=== PATIENT | male | born 1955 ===

== ENCOUNTER 2021-04-23 09:52 | Inpatient (IN) | payer OTHER, SELFPAY ==
[2021-04-23] MEDS ORDERED: Dexamethasone 10 MG/ML VIAL ONE (10:11)
[2021-04-23] MEDS ORDERED: Lorazepam 2 MG/ML VIAL ONE ×2 (10:25→15:19)
[2021-04-23 10:31] LABS: #Lymphocytes 0.8 thou/uL (1.20-3.40); #Monocytes 0.9 thou/uL (0.11-0.59); #Neutrophils 6.5 thou/uL (1.40-6.50); %Eosinophils 0.1 % (0.0-10.0); %Lymphocytes 9.4 % (21.0-51.0); %Monocytes 10.8 % (0.0-10.0); %Neutrophils 79.6 % (42.0-75.0); Hemoglobin 17.5 g/dL (14.0-18.0); Mean Corpuscular HGB CONC 33.6 g/dL (32.0-36.0); Mean Corpuscular Hemoglobin 31.1 pg (27.0-31.0); Mean Corpuscular Volume 92.6 fL (78.0-98.0); Platelet Count 187 thou/uL (130-400); RBC Distribution Width 12.7 % (11.5-14.5); Red Blood Cell (RBC) Count 5.62 mill/uL (4.70-6.10); White Blood Cell (WBC) Count 8.2 thou/uL (4.8-10.8)
[2021-04-23 10:50] LABS: ALT (SGPT) 18 U/L (8-55); AST (SGOT) 37 U/L (5-34); Albumin 3.8 g/dL (3.4-4.8); Alkaline Phosphatase 164 U/L (40-110); Anion Gap 24 mmol/L (10-20); BUN (Urea Nitrogen) 22 mg/dL (8.4-25.7); Bilirubin, Total 1.2 mg/dL (0.2-1.2); Calc. Creatinine Clearance 0 mL/min (70-130); Calcium 9.5 mg/dL (7.8-10.44); Carbon Dioxide 22 mmol/L (23-31); Chloride 102 mmol/L (98-107); Globulin 3.1 g/dL (2.4-3.5); Glucose 237 mg/dL (80-115); Lipase 63 U/L (8-78); Potassium 4.7 mmol/L (3.5-5.1); Protein, Total 6.9 g/dL (5.8-8.1); Sodium 143 mmol/L (136-145)
[2021-04-23 10:51] LABS: Bacteria/HPF None Seen HPF (None Seen); Bilirubin Negative (Negative); Blood, Urine 2+ (Negative); Clarity Clear (Clear); Glucose, Urine (Dipstick) Greater than 1000 mg/dL (Negative); Ketone, Urine 80 mg/dL (Negative); Leukocyte Negative Leu/uL (Negative); Nitrite Negative (Negative); Protein, Urine (Dipstick) 100 mg/dL (Neg-Trace); RBC/HPF 0-3 HPF (0-3); Specific Gravity, Urine 1.033 (1.002-1.036); Squamous Epithelial 0-3 HPF (0-3); Urobilinogen Normal mg/dL (Less than 2); WBC/HPF 0-3 HPF (0-3); pH, Urine 5.5 (5.0-9.0)
[2021-04-23] MEDS ORDERED: Ketorolac Tromethamine 30 MG/ML VIAL ONE (10:56)
[2021-04-23] MEDS ORDERED: Rocuronium Bromide 10 MG/ML (10ML VIAL) ONE ×2 (11:03→13:37)
[2021-04-23 11:12] LABS: CKMB 2.6 ng/mL (0-6.6)
[2021-04-23] MEDS ORDERED: Midazolam HCl 5 mg/ml Vial ONE ×2 (11:31→12:33)
[2021-04-23] MEDS ORDERED: Fentanyl 100 MCG/2 ML VIAL ONE (11:31)
[2021-04-23] MEDS ORDERED: Propofol 1,000 MG/100 ML VIAL IV ONE ×2 (11:33→13:37)
[2021-04-23] MEDS ORDERED: Iopamidol-370 76% 500 ML 1 ML ONE (11:46)
[2021-04-23 11:55] LABS: Prothrombin Time 13.3 sec (12.0-14.7)
[2021-04-23 11:56] LABS: PTT 32.9 sec (22.9-36.1)
[2021-04-23] MEDS ORDERED: fentaNYL Citrate/PF 2,000 MCG in Sodium Chloride 0.9% 60 ML IV SCH (12:00)
[2021-04-23 12:13] LABS: Actual Bicarbonate (HCO3a) 16.1 mEq/L (22-28); Analyzer IN Cardio ER; CO2 Tension 36.3 mmHg (35.0-45.0); Calcium, Ionized (arterial) 1.22 mmol/L (1.12-1.30); Carboxyhemoglobin (COHb) 0.5 gm% (0.0-3.0); Hemoglobin (Hb) 16.8 g/dL (14.0-18.0); O2 Tension (PaO2), arterial 82.8 mmHg (> 80.0); pH, Arterial 7.26 (7.35-7.45)
[2021-04-23] MEDS: Sodium Chloride 0.9% 1,000 ML IV SCH (13:30)
[2021-04-23] MEDS ORDERED: Rocuronium Bromide 10 MG/ML (10ML VIAL) IVP SCH (13:30)
[2021-04-23] MEDS: Lorazepam 2 MG/ML VIAL ONE ×2 (13:40→15:19)
[2021-04-23 13:55] LABS: Puncture Site LRA
[2021-04-23 13:56] LABS: ALV-art Gradient 584.825 mmHg (0-20)
[2021-04-23] MEDS ORDERED: Dextrose 5% in Water 1,000 ML IV PRN (14:38)
[2021-04-23] MEDS ORDERED: Dextrose 50% Abboject 50 ML SYRINGE SLOW IVP PRN (14:38)
[2021-04-23 14:42] LABS: Lactic Acid 2.6 mmol/L (0.5-2.2)
[2021-04-23] MEDS ORDERED: Pantoprazole 40 MG VIAL IVP SCH (14:45)
[2021-04-23 14:54] LABS: Troponin I 2.857 ng/mL (< 0.028)
[2021-04-23] MEDS: cefTRIAXone\\ROCEPHIN 1 GM in Sodium Chloride 0.9% 100 ML IVPB SCH (15:10)
[2021-04-23] MEDS: HumaLOG 300 UNITS/3 ML VIAL SC PRN (15:11)
[2021-04-23] MEDS ORDERED: Vecuronium 10 MG VIAL ONE (15:14)
[2021-04-23] MEDS: Azithromycin 500 MG in Sodium Chloride 0.9% 250 ML 250 ML IVPB SCH (15:16)
[2021-04-23] MEDS ORDERED: Propofol BOLUS 1,000 MG/100 ML VIAL IV PRN (15:30)
[2021-04-23] MEDS ORDERED: DISCONTINUE PREVIOUS NARCOTIC PAIN MEDICATIONS AND BENZODIAZEPINES FS SCH (15:30)
[2021-04-23] MEDS ORDERED: Fentanyl BOLUS 250 ML IVPB PRN (15:30)
[2021-04-23 17:39] LABS: Troponin I 4.276 ng/mL (< 0.028)
[2021-04-23] MEDS ORDERED: Aspirin 300 MG Suppository PR SCH (17:45)
[2021-04-23] MEDS: METHYLPREDNISOLONE SOD SUCC IVPB SCH (20:54)
[2021-04-23] MEDS: ADMIXTURE FEE IVPB SCH (20:54)
[2021-04-23] MEDS: Pantoprazole 40 MG VIAL IVP SCH (20:54)
[2021-04-23] MEDS: Atorvastatin Calcium 40 MG TAB PO SCH (20:54)
[2021-04-23] MEDS: [UNRECOGNIZED DRUG - OTHER] IVPB SCH (20:54)
[2021-04-23] MEDS: Lorazepam 2 MG/ML VIAL SLOW IVP PRN (20:55)
[2021-04-23] MEDS: Vecuronium 10 MG VIAL IV PRN (20:55)
[2021-04-23] MEDS: Propofol 1,000 MG/100 ML VIAL IV PRN (20:55)
[2021-04-23] MEDS: Enoxaparin Sodium 60 MG/0.6 ML SYRINGE SC SCH (20:55)
[2021-04-24] MEDS: Vecuronium 10 MG VIAL IV PRN ×6 (01:18→20:29)
[2021-04-24] MEDS: Sodium Chloride 0.9% 1,000 ML IV SCH ×2 (03:35→16:18)
[2021-04-24 04:45] LABS: ALT (SGPT) 14 U/L (8-55); AST (SGOT) 47 U/L (5-34); Alkaline Phosphatase 119 U/L (40-110); Anion Gap 20 mmol/L (10-20); BUN (Urea Nitrogen) 35 mg/dL (8.4-25.7); Bilirubin, Total 0.7 mg/dL (0.2-1.2); Calc. Creatinine Clearance 47 mL/min (70-130); Carbon Dioxide 18 mmol/L (23-31); Chloride 111 mmol/L (98-107); Glucose 267 mg/dL (80-115); Potassium 4.7 mmol/L (3.5-5.1); Sodium 144 mmol/L (136-145)
[2021-04-24] MEDS: Lorazepam 2 MG/ML VIAL SLOW IVP PRN ×4 (04:58→20:29)
[2021-04-24] MEDS: HumaLOG 300 UNITS/3 ML VIAL SC PRN ×4 (05:32→23:03)
[2021-04-24 06:26] LABS: Hemoglobin 15.4 g/dL (14.0-18.0); Mean Corpuscular HGB CONC 33.9 g/dL (32.0-36.0); Mean Corpuscular Hemoglobin 31.5 pg (27.0-31.0); Mean Corpuscular Volume 92.8 fL (78.0-98.0); Platelet Count 179 thou/uL (130-400); RBC Distribution Width 12.9 % (11.5-14.5); Red Blood Cell (RBC) Count 4.89 mill/uL (4.70-6.10); White Blood Cell (WBC) Count 9.2 thou/uL (4.8-10.8)
[2021-04-24 06:57] LABS: Band 17 % (5-11); Lymphocytes 11 % (21-51); MDiff Complete? YES; Monocytes 11 % (0-10); Neutrophil 61 % (42-75)
[2021-04-24] MEDS: Aspirin 300 MG Suppository PR SCH (07:43)
[2021-04-24] MEDS: Pantoprazole 40 MG VIAL IVP SCH ×2 (07:43→20:28)
[2021-04-24] MEDS: Enoxaparin Sodium 60 MG/0.6 ML SYRINGE SC SCH ×2 (07:43→20:29)
[2021-04-24 08:24] LABS: Actual Bicarbonate (HCO3a) 16.5 mEq/L (22-28); Base Excess (BEa) -8.2 mEq/L (-2.0 to +3.0); CO2 Tension 32.3 mmHg (35.0-45.0); Calcium, Ionized (arterial) 1.21 mmol/L (1.12-1.30); Carboxyhemoglobin (COHb) 0.5 gm% (0.0-3.0); Hemoglobin (Hb) 15.7 g/dL (14.0-18.0); Potassium - ABG Lab 4.46 mmol/L (3.70-5.30); pH, Arterial 7.33 (7.35-7.45)
[2021-04-24 08:26] LABS: ALV-art Gradient 168.825 mmHg (0-20); Puncture Site LRA
[2021-04-24] MEDS ORDERED: Pantoprazole 40 MG VIAL IVP SCH (09:00)
[2021-04-24] MEDS ORDERED: Dexamethasone 10 MG/ML VIAL SLOW IVP SCH (09:00)
[2021-04-24] MEDS ORDERED: BARICITINIB IVPB PRN (09:37)
[2021-04-24] MEDS ORDERED: BARICITINIB 2 MG TAB PO SCH (10:00)
[2021-04-24] MEDS: Fentanyl CADD 100 ML IV SCH (12:37)
[2021-04-24 14:29] LABS: Troponin I 12.939 ng/mL (< 0.028)
[2021-04-24] MEDS: cefTRIAXone\\ROCEPHIN 1 GM in Sodium Chloride 0.9% 100 ML IVPB SCH (15:46)
[2021-04-24] MEDS: Azithromycin 500 MG in Sodium Chloride 0.9% 250 ML 250 ML IVPB SCH (16:17)
[2021-04-24] MEDS: METHYLPREDNISOLONE SOD SUCC IVPB SCH (16:54)
[2021-04-24] MEDS: ADMIXTURE FEE IVPB SCH (16:54)
[2021-04-24] MEDS: [UNRECOGNIZED DRUG - OTHER] IVPB SCH (16:54)
[2021-04-24] MEDS: Propofol 1,000 MG/100 ML VIAL IV PRN (20:28)
[2021-04-24] MEDS: BARICITINIB 2 MG TAB PO SCH (20:29)
[2021-04-24] MEDS: Atorvastatin Calcium 40 MG TAB PO SCH (20:29)
[2021-04-25 04:21] LABS: Band 7 % (5-11); Hemoglobin 15.5 g/dL (14.0-18.0); Lymphocytes 19 % (21-51); MDiff Complete? YES; Mean Corpuscular Hemoglobin 31.6 pg (27.0-31.0); Mean Corpuscular Volume 92.9 fL (78.0-98.0); Mean Platelet Volume 9.3 fL (7.4-10.4); Monocytes 9 % (0-10); Neutrophil 65 % (42-75); Platelet Count 203 thou/uL (130-400); Platelet Morphology Comment Appears Adequate; RBC Distribution Width 12.8 % (11.5-14.5); RBC Morphology Normal; Red Blood Cell (RBC) Count 4.92 mill/uL (4.70-6.10); White Blood Cell (WBC) Count 13.7 thou/uL (4.8-10.8)
[2021-04-25] MEDS: Vecuronium 10 MG VIAL IV PRN ×3 (04:24→15:26)
[2021-04-25] MEDS: Lorazepam 2 MG/ML VIAL SLOW IVP PRN ×3 (04:24→20:05)
[2021-04-25 04:30] LABS: ALT (SGPT) 17 U/L (8-55); AST (SGOT) 76 U/L (5-34); Albumin 2.7 g/dL (3.4-4.8); Alkaline Phosphatase 103 U/L (40-110); Anion Gap 18 mmol/L (10-20); BUN (Urea Nitrogen) 58 mg/dL (8.4-25.7); Bilirubin, Direct 0.2 mg/dL (0.1-0.3); Bilirubin, Total 0.5 mg/dL (0.2-1.2); Calc. Creatinine Clearance 39 mL/min (70-130); Calcium 8.9 mg/dL (7.8-10.44); Carbon Dioxide 19 mmol/L (23-31); Cardiac Risk 6.4 (Less than 4.5); Chloride 112 mmol/L (98-107); Cholesterol 134 mg/dl (< 200 Desired); Globulin 3.3 g/dL (2.4-3.5); Glucose 411 mg/dL (80-115); HDL Cholesterol 21 mg/dL (>60 Neg Risk); Sodium 144 mmol/L (136-145)
[2021-04-25] MEDS: HumaLOG 300 UNITS/3 ML VIAL SC PRN ×4 (04:38→21:23)
[2021-04-25 04:41] LABS: LDL Cholesterol, Calculated 32 mg/dL
[2021-04-25 05:12] LABS: Triglycerides 384 mg/dL (Less than 150)
[2021-04-25] MEDS: Propofol 1,000 MG/100 ML VIAL IV PRN ×3 (06:33→20:03)
[2021-04-25] MEDS ORDERED: Dextrose 5% in Water 1,000 ML IV PRN (08:00)
[2021-04-25] MEDS ORDERED: Dextrose 50% Abboject 50 ML SYRINGE SLOW IVP PRN (08:00)
[2021-04-25 08:05] LABS: Actual Bicarbonate (HCO3a) 18.3 mEq/L (22-28); Base Excess (BEa) -6.1 mEq/L (-2.0 to +3.0); CO2 Tension 33.7 mmHg (35.0-45.0); Calcium, Ionized (arterial) 1.21 mmol/L (1.12-1.30); Carboxyhemoglobin (COHb) 0.5 gm% (0.0-3.0); Hemoglobin (Hb) 17.4 g/dL (14.0-18.0); O2 Tension (PaO2), arterial 65.9 mmHg (> 80.0); pH, Arterial 7.35 (7.35-7.45)
[2021-04-25 08:10] LABS: ALV-art Gradient 177.175 mmHg (0-20); Puncture Site RRA
[2021-04-25] MEDS: Pantoprazole 40 MG VIAL IVP SCH (08:59)
[2021-04-25] MEDS: Aspirin 300 MG Suppository PR SCH (08:59)
[2021-04-25] MEDS: Enoxaparin Sodium 60 MG/0.6 ML SYRINGE SC SCH ×2 (08:59→20:04)
[2021-04-25] MEDS: Lantus 1000 UNITS/10 ML VIAL SC SCH (10:11)
[2021-04-25] MEDS: Fentanyl CADD 100 ML IV SCH (12:37)
[2021-04-25] MEDS: cefTRIAXone\\ROCEPHIN 1 GM in Sodium Chloride 0.9% 100 ML IVPB SCH (15:26)
[2021-04-25] MEDS: Azithromycin 500 MG in Sodium Chloride 0.9% 250 ML 250 ML IVPB SCH (16:35)
[2021-04-25] MEDS: BARICITINIB 2 MG TAB PO SCH (20:04)
[2021-04-25] MEDS: Pantoprazole 40 MG GRANULES PACKET PER TUBE SCH (20:04)
[2021-04-25] MEDS: Atorvastatin Calcium 40 MG TAB PO SCH (20:04)
[2021-04-26 04:53] LABS: ALT (SGPT) 24 U/L (8-55); AST (SGOT) 97 U/L (5-34); Albumin 2.8 g/dL (3.4-4.8); Alkaline Phosphatase 101 U/L (40-110); Anion Gap 16 mmol/L (10-20); BUN (Urea Nitrogen) 76 mg/dL (8.4-25.7); Band 12 % (5-11); Bilirubin, Total 0.4 mg/dL (0.2-1.2); Calc. Creatinine Clearance 41 mL/min (70-130); Calcium 8.9 mg/dL (7.8-10.44); Carbon Dioxide 21 mmol/L (23-31); Chloride 116 mmol/L (98-107); Globulin 3.2 g/dL (2.4-3.5); Glucose 279 mg/dL (80-115); Hemoglobin 15.2 g/dL (14.0-18.0); Lymphocytes 4 % (21-51); MDiff Complete? YES; Mean Corpuscular HGB CONC 33.8 g/dL (32.0-36.0); Mean Corpuscular Hemoglobin 31.3 pg (27.0-31.0); Mean Corpuscular Volume 92.5 fL (78.0-98.0); Mean Platelet Volume 9.4 fL (7.4-10.4); Monocytes 11 % (0-10); Neutrophil 73 % (42-75); Platelet Count 201 thou/uL (130-400); Platelet Morphology Comment Appears Adequate; Potassium 4.5 mmol/L (3.5-5.1); RBC Distribution Width 12.9 % (11.5-14.5); RBC Morphology Normal; Red Blood Cell (RBC) Count 4.86 mill/uL (4.70-6.10); Sodium 148 mmol/L (136-145); White Blood Cell (WBC) Count 17.3 thou/uL (4.8-10.8)
[2021-04-26] MEDS: HumaLOG 300 UNITS/3 ML VIAL SC PRN ×4 (05:04→21:21)
[2021-04-26] MEDS: Propofol 1,000 MG/100 ML VIAL IV PRN ×3 (05:50→22:16)
[2021-04-26] MEDS: Enoxaparin Sodium 60 MG/0.6 ML SYRINGE SC SCH ×2 (08:28→20:02)
[2021-04-26] MEDS: Pantoprazole 40 MG GRANULES PACKET PER TUBE SCH ×2 (08:28→20:04)
[2021-04-26] MEDS: Lantus 1000 UNITS/10 ML VIAL SC SCH (10:14)
[2021-04-26] MEDS: Lorazepam 2 MG/ML VIAL SLOW IVP PRN ×2 (11:07→13:44)
[2021-04-26] MEDS: Fentanyl CADD 100 ML IV SCH (12:52)
[2021-04-26] MEDS: Vecuronium 10 MG VIAL IV PRN (13:30)
[2021-04-26] MEDS ORDERED: Aspirin 325 MG TAB PER TUBE SCH (14:30)
[2021-04-26] MEDS: cefTRIAXone\\ROCEPHIN 1 GM in Sodium Chloride 0.9% 100 ML IVPB SCH (15:33)
[2021-04-26] MEDS: Acetaminophen 500 MG TAB PER TUBE PRN ×2 (15:33→20:03)
[2021-04-26] MEDS: Azithromycin 500 MG in Sodium Chloride 0.9% 250 ML 250 ML IVPB SCH (16:13)
[2021-04-26] MEDS: BARICITINIB 2 MG TAB PO SCH (20:03)
[2021-04-26] MEDS: Atorvastatin Calcium 40 MG TAB PO SCH (20:03)
[2021-04-26] MEDS ORDERED: Lantus 1000 UNITS/10 ML VIAL SC SCH (21:00)
[2021-04-26] MEDS: Aspirin 300 MG Suppository PR SCH (22:02)
[2021-04-26] MEDS: METHYLPREDNISOLONE SOD SUCC IVPB SCH (22:10)
[2021-04-26] MEDS: [UNRECOGNIZED DRUG - OTHER] IVPB SCH (22:10)
[2021-04-26] MEDS: ADMIXTURE FEE IVPB SCH (22:10)
[2021-04-27] MEDS: HumaLOG 300 UNITS/3 ML VIAL SC PRN ×3 (04:10→22:42)
[2021-04-27 05:11] LABS: Band 6 % (5-11); Hemoglobin 15.2 g/dL (14.0-18.0); Lymphocytes 6 % (21-51); MDiff Complete? YES; Mean Corpuscular HGB CONC 33.1 g/dL (32.0-36.0); Mean Corpuscular Hemoglobin 31.1 pg (27.0-31.0); Mean Corpuscular Volume 94.1 fL (78.0-98.0); Mean Platelet Volume 10.1 fL (7.4-10.4); Monocytes 5 % (0-10); Neutrophil 82 % (42-75); Platelet Count 165 thou/uL (130-400); Platelet Morphology Comment Appears Adequate; Reactive Lymphocytes 1 % (0-10); Red Blood Cell (RBC) Count 4.87 mill/uL (4.70-6.10); White Blood Cell (WBC) Count 17.5 thou/uL (4.8-10.8)
[2021-04-27 05:28] LABS: ALT (SGPT) 25 U/L (8-55); AST (SGOT) 59 U/L (5-34); Albumin 2.7 g/dL (3.4-4.8); Alkaline Phosphatase 91 U/L (40-110); Anion Gap 12 mmol/L (10-20); BUN (Urea Nitrogen) 79 mg/dL (8.4-25.7); Bilirubin, Total 0.6 mg/dL (0.2-1.2); Calc. Creatinine Clearance 48 mL/min (70-130); Carbon Dioxide 25 mmol/L (23-31); Chloride 117 mmol/L (98-107); Glucose 309 mg/dL (80-115); Potassium 5.1 mmol/L (3.5-5.1); Protein, Total 5.7 g/dL (5.8-8.1); Sodium 149 mmol/L (136-145)
[2021-04-27] MEDS: Acetaminophen 500 MG TAB PER TUBE PRN (07:23)
[2021-04-27] MEDS: Propofol 1,000 MG/100 ML VIAL IV PRN ×2 (07:24→15:58)
[2021-04-27] MEDS: Enoxaparin Sodium 60 MG/0.6 ML SYRINGE SC SCH ×2 (07:24→20:02)
[2021-04-27] MEDS: Pantoprazole 40 MG GRANULES PACKET PER TUBE SCH ×2 (07:24→20:02)
[2021-04-27] MEDS: Aspirin 325 MG TAB PER TUBE SCH (07:24)
[2021-04-27] MEDS: Lantus 1000 UNITS/10 ML VIAL SC SCH ×2 (10:15→20:03)
[2021-04-27] MEDS ORDERED: Lantus 1000 UNITS/10 ML VIAL SC SCH ×2 (10:34→10:45)
[2021-04-27] MEDS: Fentanyl CADD 100 ML IV SCH (12:16)
[2021-04-27] MEDS: Lorazepam 2 MG/ML VIAL SLOW IVP PRN (13:45)
[2021-04-27] MEDS: cefTRIAXone\\ROCEPHIN 1 GM in Sodium Chloride 0.9% 100 ML IVPB SCH (13:59)
[2021-04-27] MEDS: Azithromycin 500 MG in Sodium Chloride 0.9% 250 ML 250 ML IVPB SCH (15:57)
[2021-04-27] MEDS: BARICITINIB 2 MG TAB PO SCH (20:02)
[2021-04-27] MEDS: Atorvastatin Calcium 40 MG TAB PO SCH (20:02)
[2021-04-27] MEDS: METHYLPREDNISOLONE SOD SUCC IVPB SCH (22:05)
[2021-04-27] MEDS: ADMIXTURE FEE IVPB SCH (22:05)
[2021-04-27] MEDS: [UNRECOGNIZED DRUG - OTHER] IVPB SCH (22:05)
[2021-04-28] MEDS: Propofol 1,000 MG/100 ML VIAL IV PRN ×4 (01:24→22:51)
[2021-04-28] MEDS: HumaLOG 300 UNITS/3 ML VIAL SC PRN ×3 (04:40→22:17)
[2021-04-28 04:55] LABS: ALT (SGPT) 18 U/L (8-55); AST (SGOT) 24 U/L (5-34); Albumin 2.6 g/dL (3.4-4.8); Alkaline Phosphatase 80 U/L (40-110); Anion Gap 11 mmol/L (10-20); BUN (Urea Nitrogen) 83 mg/dL (8.4-25.7); Bilirubin, Direct 0.3 mg/dL (0.1-0.3); Bilirubin, Total 0.5 mg/dL (0.2-1.2); Calc. Creatinine Clearance 50 mL/min (70-130); Calcium 8.6 mg/dL (7.8-10.44); Carbon Dioxide 25 mmol/L (23-31); Chloride 117 mmol/L (98-107); Globulin 2.8 g/dL (2.4-3.5); Glucose 349 mg/dL (80-115); Protein, Total 5.4 g/dL (5.8-8.1); Sodium 148 mmol/L (136-145)
[2021-04-28 04:56] LABS: Band 3 % (5-11); Lymphocytes 5 % (21-51); MDiff Complete? YES; Mean Corpuscular HGB CONC 32.7 g/dL (32.0-36.0); Mean Corpuscular Hemoglobin 30.8 pg (27.0-31.0); Mean Corpuscular Volume 94.2 fL (78.0-98.0); Monocytes 4 % (0-10); Neutrophil 88 % (42-75); Platelet Count 173 thou/uL (130-400); RBC Morphology Normal; Red Blood Cell (RBC) Count 4.53 mill/uL (4.70-6.10); White Blood Cell (WBC) Count 16.2 thou/uL (4.8-10.8)
[2021-04-28] MEDS: Fentanyl CADD 100 ML IV SCH (06:02)
[2021-04-28] MEDS: Enoxaparin Sodium 60 MG/0.6 ML SYRINGE SC SCH ×2 (08:03→20:29)
[2021-04-28] MEDS: Aspirin 325 MG TAB PER TUBE SCH (08:03)
[2021-04-28] MEDS: Pantoprazole 40 MG GRANULES PACKET PER TUBE SCH ×2 (08:03→20:29)
[2021-04-28] MEDS: Lorazepam 2 MG/ML VIAL SLOW IVP PRN ×2 (13:02→17:07)
[2021-04-28] MEDS: cefTRIAXone\\ROCEPHIN 1 GM in Sodium Chloride 0.9% 100 ML IVPB SCH (14:24)
[2021-04-28] MEDS: Azithromycin 500 MG in Sodium Chloride 0.9% 250 ML 250 ML IVPB SCH (15:07)
[2021-04-28] MEDS: Atorvastatin Calcium 40 MG TAB PO SCH (20:28)
[2021-04-28] MEDS: Senokot S 8.6-50 MG TAB PO SCH (20:29)
[2021-04-28] MEDS: BARICITINIB 2 MG TAB PO SCH (20:29)
[2021-04-28] MEDS: Lantus 1000 UNITS/10 ML VIAL SC SCH (20:30)
[2021-04-29] MEDS: Fentanyl CADD 100 ML IV SCH ×2 (00:30→14:39)
[2021-04-29] MEDS: METHYLPREDNISOLONE SOD SUCC IVPB SCH (02:11)
[2021-04-29] MEDS: ADMIXTURE FEE IVPB SCH (02:11)
[2021-04-29] MEDS: [UNRECOGNIZED DRUG - OTHER] IVPB SCH (02:11)
[2021-04-29] MEDS: Lorazepam 2 MG/ML VIAL SLOW IVP PRN ×3 (02:40→17:51)
[2021-04-29] MEDS ORDERED: Sterile Water 10 ML ONE (02:53)
[2021-04-29] MEDS: Vecuronium 10 MG VIAL IV PRN (02:53)
[2021-04-29] MEDS: HumaLOG 300 UNITS/3 ML VIAL SC PRN ×2 (03:58→17:52)
[2021-04-29 04:15] LABS: Band 8 % (5-11); Hemoglobin 13.9 g/dL (14.0-18.0); Hypochromia SLIGHT = 6-15 cells (100X) (0-5/hpf); Lymphocytes 7 % (21-51); MDiff Complete? YES; Mean Corpuscular HGB CONC 32.5 g/dL (32.0-36.0); Mean Corpuscular Hemoglobin 30.6 pg (27.0-31.0); Mean Corpuscular Volume 94.2 fL (78.0-98.0); Mean Platelet Volume 10.7 fL (7.4-10.4); Monocytes 11 % (0-10); Neutrophil 74 % (42-75); Platelet Count 195 thou/uL (130-400); Platelet Morphology Comment Appears Adequate; RBC Distribution Width 13.1 % (11.5-14.5); Red Blood Cell (RBC) Count 4.53 mill/uL (4.70-6.10)
[2021-04-29 04:20] LABS: ALT (SGPT) 21 U/L (8-55); AST (SGOT) 20 U/L (5-34); Albumin 2.6 g/dL (3.4-4.8); Alkaline Phosphatase 82 U/L (40-110); Anion Gap 12 mmol/L (10-20); BUN (Urea Nitrogen) 82 mg/dL (8.4-25.7); Bilirubin, Total 0.5 mg/dL (0.2-1.2); Calc. Creatinine Clearance 55 mL/min (70-130); Calcium 8.9 mg/dL (7.8-10.44); Carbon Dioxide 26 mmol/L (23-31); Chloride 121 mmol/L (98-107); Globulin 2.9 g/dL (2.4-3.5); Glucose 275 mg/dL (80-115); Potassium 4.7 mmol/L (3.5-5.1); Protein, Total 5.5 g/dL (5.8-8.1); Sodium 154 mmol/L (136-145)
[2021-04-29 05:15] LABS: Magnesium 3.7 mg/dL (1.6-2.6)
[2021-04-29] MEDS: Propofol 1,000 MG/100 ML VIAL IV PRN ×4 (06:34→20:51)
[2021-04-29] MEDS: Pantoprazole 40 MG GRANULES PACKET PER TUBE SCH ×2 (09:59→20:55)
[2021-04-29] MEDS: Enoxaparin Sodium 60 MG/0.6 ML SYRINGE SC SCH ×2 (10:54→20:51)
[2021-04-29] MEDS: Senokot S 8.6-50 MG TAB PO SCH ×2 (10:54→20:51)
[2021-04-29] MEDS: Polyethylene Glycol 3350 17 GM Packet PER TUBE SCH (10:55)
[2021-04-29] MEDS: Lantus 1000 UNITS/10 ML VIAL SC SCH ×2 (10:59→20:52)
[2021-04-29] MEDS: Aspirin 325 MG TAB PER TUBE SCH (12:11)
[2021-04-29] MEDS: cefTRIAXone\\ROCEPHIN 1 GM in Sodium Chloride 0.9% 100 ML IVPB SCH (15:55)
[2021-04-29] MEDS: BARICITINIB 2 MG TAB PO SCH (20:51)
[2021-04-29] MEDS: Atorvastatin Calcium 40 MG TAB PO SCH (20:51)
[2021-04-30] MEDS: HumaLOG 300 UNITS/3 ML VIAL SC PRN (04:45)
[2021-04-30 04:51] LABS: ALT (SGPT) 24 U/L (8-55); AST (SGOT) 32 U/L (5-34); Albumin 2.5 g/dL (3.4-4.8); Alkaline Phosphatase 83 U/L (40-110); Anion Gap 13 mmol/L (10-20); BUN (Urea Nitrogen) 65 mg/dL (8.4-25.7); Bilirubin, Total 0.6 mg/dL (0.2-1.2); Calc. Creatinine Clearance 64 mL/min (70-130); Calcium 8.8 mg/dL (7.8-10.44); Carbon Dioxide 27 mmol/L (23-31); Chloride 118 mmol/L (98-107); Glucose 166 mg/dL (80-115); Protein, Total 5.5 g/dL (5.8-8.1); Sodium 153 mmol/L (136-145)
[2021-04-30 04:56] LABS: Band 4 % (5-11); Eosinophils 1 % (0-10); Hemoglobin 13.7 g/dL (14.0-18.0); Lymphocytes 8 % (21-51); MDiff Complete? YES; Mean Corpuscular HGB CONC 32.9 g/dL (32.0-36.0); Mean Corpuscular Hemoglobin 31.5 pg (27.0-31.0); Mean Corpuscular Volume 95.7 fL (78.0-98.0); Mean Platelet Volume 10.8 fL (7.4-10.4); Monocytes 6 % (0-10); Neutrophil 81 % (42-75); Platelet Count 178 thou/uL (130-400); Platelet Morphology Comment Appears Adequate; RBC Morphology Normal; Red Blood Cell (RBC) Count 4.36 mill/uL (4.70-6.10); White Blood Cell (WBC) Count 15.9 thou/uL (4.8-10.8)
[2021-04-30] MEDS: Propofol 1,000 MG/100 ML VIAL IV PRN ×3 (06:21→18:44)
[2021-04-30 08:19] LABS: Actual Bicarbonate (HCO3a) 24.6 mEq/L (22-28); CO2 Tension 35.9 mmHg (35.0-45.0); Calcium, Ionized (arterial) 1.24 mmol/L (1.12-1.30); Carboxyhemoglobin (COHb) 0.4 gm% (0.0-3.0); Hemoglobin (Hb) 13.9 g/dL (14.0-18.0); O2 Tension (PaO2), arterial 60.8 mmHg (> 80.0); Potassium - ABG Lab 4.55 mmol/L (3.70-5.30); pH, Arterial 7.45 (7.35-7.45)
[2021-04-30 08:21] LABS: ALV-art Gradient 250.825 mmHg (0-20); Puncture Site LRA
[2021-04-30] MEDS: Fentanyl CADD 100 ML IV SCH (09:39)
[2021-04-30] MEDS: Lorazepam 2 MG/ML VIAL SLOW IVP PRN (09:39)
[2021-04-30] MEDS: Polyethylene Glycol 3350 17 GM Packet PER TUBE SCH (09:39)
[2021-04-30] MEDS: Pantoprazole 40 MG GRANULES PACKET PER TUBE SCH ×2 (09:40→21:48)
[2021-04-30] MEDS: Aspirin 325 MG TAB PER TUBE SCH (09:40)
[2021-04-30] MEDS: Senokot S 8.6-50 MG TAB PO SCH ×2 (09:40→21:40)
[2021-04-30] MEDS: Lantus 1000 UNITS/10 ML VIAL SC SCH ×2 (09:41→21:41)
[2021-04-30] MEDS: Enoxaparin Sodium 60 MG/0.6 ML SYRINGE SC SCH ×2 (09:47→21:41)
[2021-04-30] MEDS: Gabapentin 300 MG CAP PO SCH ×2 (14:42→21:39)
[2021-04-30] MEDS: cefTRIAXone\\ROCEPHIN 1 GM in Sodium Chloride 0.9% 100 ML IVPB SCH (16:49)
[2021-04-30] MEDS: BARICITINIB 2 MG TAB PO SCH (21:38)
[2021-04-30] MEDS: Atorvastatin Calcium 40 MG TAB PO SCH (21:44)
[2021-05-01] MEDS: Propofol 1,000 MG/100 ML VIAL IV PRN ×3 (01:20→14:47)
[2021-05-01] MEDS: Fentanyl CADD 100 ML IV SCH ×2 (02:17→19:30)
[2021-05-01] MEDS: ADMIXTURE FEE IVPB SCH (02:24)
[2021-05-01] MEDS: [UNRECOGNIZED DRUG - OTHER] IVPB SCH (02:24)
[2021-05-01] MEDS: METHYLPREDNISOLONE SOD SUCC IVPB SCH (02:24)
[2021-05-01 03:40] LABS: Mean Corpuscular HGB CONC 33.1 g/dL (32.0-36.0); Mean Corpuscular Hemoglobin 31.7 pg (27.0-31.0); Mean Corpuscular Volume 95.6 fL (78.0-98.0); Platelet Count 191 thou/uL (130-400); RBC Distribution Width 12.8 % (11.5-14.5); Red Blood Cell (RBC) Count 4.43 mill/uL (4.70-6.10); White Blood Cell (WBC) Count 12.2 thou/uL (4.8-10.8)
[2021-05-01 03:48] LABS: Band 2 % (5-11); Lymphocytes 12 % (21-51); MDiff Complete? YES; Monocytes 1 % (0-10); Neutrophil 85 % (42-75); Platelet Morphology Comment Appears Adequate; RBC Morphology Normal
[2021-05-01 04:03] LABS: ALT (SGPT) 27 U/L (8-55); AST (SGOT) 30 U/L (5-34); Albumin 2.4 g/dL (3.4-4.8); Alkaline Phosphatase 76 U/L (40-110); Anion Gap 11 mmol/L (10-20); BUN (Urea Nitrogen) 49 mg/dL (8.4-25.7); Bilirubin, Total 0.8 mg/dL (0.2-1.2); Calc. Creatinine Clearance 110 mL/min (70-130); Calcium 8.9 mg/dL (7.8-10.44); Carbon Dioxide 28 mmol/L (23-31); Chloride 114 mmol/L (98-107); Glucose 169 mg/dL (80-115); Potassium 4.6 mmol/L (3.5-5.1); Protein, Total 5.4 g/dL (5.8-8.1); Sodium 148 mmol/L (136-145)
[2021-05-01 08:10] LABS: Actual Bicarbonate (HCO3a) 25.8 mEq/L (22-28); Base Excess (BEa) 1.7 mEq/L (-2.0 to +3.0); CO2 Tension 38.9 mmHg (35.0-45.0); Calcium, Ionized (arterial) 1.21 mmol/L (1.12-1.30); Carboxyhemoglobin (COHb) 0.9 gm% (0.0-3.0); Hemoglobin (Hb) 13.8 g/dL (14.0-18.0); Potassium - ABG Lab 4.44 mmol/L (3.70-5.30); pH, Arterial 7.44 (7.35-7.45)
[2021-05-01 08:12] LABS: ALV-art Gradient 185.775 mmHg (0-20); O2 Tension (PaO2), arterial 50.8 mmHg (> 80.0); Puncture Site LRA
[2021-05-01] MEDS: Enoxaparin Sodium 60 MG/0.6 ML SYRINGE SC SCH ×2 (08:19→20:41)
[2021-05-01] MEDS: Gabapentin 300 MG CAP PO SCH ×3 (10:02→20:40)
[2021-05-01] MEDS: Senokot S 8.6-50 MG TAB PO SCH ×2 (10:02→20:40)
[2021-05-01] MEDS: Aspirin 325 MG TAB PER TUBE SCH (10:03)
[2021-05-01] MEDS: Polyethylene Glycol 3350 17 GM Packet PER TUBE SCH (10:03)
[2021-05-01] MEDS: Lantus 1000 UNITS/10 ML VIAL SC SCH (10:07)
[2021-05-01] MEDS ORDERED: Lantus 1000 UNITS/10 ML VIAL SC SCH ×2 (11:56→11:58)
[2021-05-01] MEDS: Pantoprazole 40 MG GRANULES PACKET PER TUBE SCH (14:46)
[2021-05-01] MEDS: Carvedilol 3.125 MG TAB PO SCH (16:22)
[2021-05-01] MEDS: cefTRIAXone\\ROCEPHIN 1 GM in Sodium Chloride 0.9% 100 ML IVPB SCH (16:23)
[2021-05-01] MEDS: Atorvastatin Calcium 40 MG TAB PO SCH (20:40)
[2021-05-01] MEDS: BARICITINIB 2 MG TAB PO SCH (20:40)
[2021-05-01] MEDS: Lansoprazole 3 MG/ML ORAL SUSPENSION PER TUBE SCH (20:42)
[2021-05-01] MEDS ORDERED: Lansoprazole 3 MG/ML ORAL SUSPENSION PER TUBE SCH (21:00)
[2021-05-01] MEDS: Acetaminophen 500 MG TAB PER TUBE PRN (21:53)
[2021-05-01] MEDS: Lorazepam 2 MG/ML VIAL SLOW IVP PRN (23:01)
[2021-05-02] MEDS: Acetaminophen 500 MG TAB PER TUBE PRN ×3 (04:00→22:47)
[2021-05-02 05:35] LABS: Anion Gap 13 mmol/L (10-20); BUN (Urea Nitrogen) 34 mg/dL (8.4-25.7); Calc. Creatinine Clearance 130 mL/min (70-130); Carbon Dioxide 26 mmol/L (23-31); Chloride 110 mmol/L (98-107); Glucose 61 mg/dL (80-115); Potassium 4.4 mmol/L (3.5-5.1); Sodium 145 mmol/L (136-145)
[2021-05-02 05:42] LABS: Band 4 % (5-11); Eosinophils 1 % (0-10); Hemoglobin 13.2 g/dL (14.0-18.0); Lymphocytes 7 % (21-51); MDiff Complete? YES; Mean Corpuscular HGB CONC 33.6 g/dL (32.0-36.0); Mean Corpuscular Volume 95.3 fL (78.0-98.0); Mean Platelet Volume 10.6 fL (7.4-10.4); Monocytes 4 % (0-10); Myelocyte 1 % (0-0); Neutrophil 83 % (42-75); Nucleated RBC 1 % (0); Platelet Count 218 thou/uL (130-400); Platelet Morphology Comment Appears Adequate; RBC Distribution Width 12.5 % (11.5-14.5); RBC Morphology Normal; Red Blood Cell (RBC) Count 4.11 mill/uL (4.70-6.10); White Blood Cell (WBC) Count 11.8 thou/uL (4.8-10.8)
[2021-05-02 06:40] LABS: Albumin 2.5 g/dL (3.4-4.8)
[2021-05-02 06:42] LABS: Globulin 3.1 g/dL (2.4-3.5); Protein, Total 5.6 g/dL (5.8-8.1)
[2021-05-02 06:44] LABS: Bilirubin, Total 1.2 mg/dL (0.2-1.2)
[2021-05-02 06:45] LABS: Alkaline Phosphatase 107 U/L (40-110)
[2021-05-02 06:47] LABS: AST (SGOT) 45 U/L (5-34)
[2021-05-02 06:48] LABS: ALT (SGPT) 39 U/L (8-55)
[2021-05-02 07:37] LABS: Actual Bicarbonate (HCO3a) 26.6 mEq/L (22-28); Base Excess (BEa) 3.3 mEq/L (-2.0 to +3.0); CO2 Tension 36.5 mmHg (35.0-45.0); Calcium, Ionized (arterial) 1.24 mmol/L (1.12-1.30); Carboxyhemoglobin (COHb) 1.1 gm% (0.0-3.0); Hemoglobin (Hb) 16.9 g/dL (14.0-18.0); Potassium - ABG Lab 4.11 mmol/L (3.70-5.30); pH, Arterial 7.48 (7.35-7.45)
[2021-05-02 07:49] LABS: O2 Tension (PaO2), arterial 51.4 mmHg (> 80.0); Puncture Site LRA
[2021-05-02 07:50] LABS: ALV-art Gradient 188.175 mmHg (0-20)
[2021-05-02] MEDS: Carvedilol 3.125 MG TAB PO SCH ×2 (08:36→18:11)
[2021-05-02] MEDS: Enoxaparin Sodium 60 MG/0.6 ML SYRINGE SC SCH ×2 (09:33→20:53)
[2021-05-02] MEDS: Aspirin 325 MG TAB PER TUBE SCH (09:34)
[2021-05-02] MEDS: Gabapentin 300 MG CAP PO SCH ×3 (09:34→20:53)
[2021-05-02] MEDS: Senokot S 8.6-50 MG TAB PO SCH ×2 (09:35→20:55)
[2021-05-02] MEDS: Polyethylene Glycol 3350 17 GM Packet PER TUBE SCH (09:35)
[2021-05-02] MEDS: Lansoprazole 3 MG/ML ORAL SUSPENSION PER TUBE SCH ×2 (09:36→20:53)
[2021-05-02] MEDS: Dexmedetomidine 1,000 MCG in Sodium Chloride 0.9% 250 ML 240 ML IVPB SCH (11:11)
[2021-05-02] MEDS ORDERED: Meropenem 1 GM in Sodium Chloride 0.9% 100 ML IVPB SCH (13:00)
[2021-05-02] MEDS: Micafungin 100 MG in Sodium Chloride 0.9% 100 ML IVPB SCH (13:23)
[2021-05-02] MEDS ORDERED: Meropenem 2 GM in Admixture Fee 1 EACH IVPB SCH (14:00)
[2021-05-02] MEDS: Fentanyl CADD 100 ML IV SCH (17:09)
[2021-05-02] MEDS: Atorvastatin Calcium 40 MG TAB PO SCH (20:54)
[2021-05-02] MEDS: BARICITINIB 2 MG TAB PO SCH (20:54)
[2021-05-02] MEDS: Meropenem 1 GM in Sodium Chloride 0.9% 100 ML IVPB SCH (21:00)
[2021-05-02] MEDS: Lorazepam 2 MG/ML VIAL SLOW IVP PRN (21:30)
[2021-05-03 04:41] LABS: Hemoglobin 12.9 g/dL (14.0-18.0); Hypochromia SLIGHT = 6-15 cells (100X) (0-5/hpf); Lymphocytes 6 % (21-51); MDiff Complete? YES; Mean Corpuscular HGB CONC 33.6 g/dL (32.0-36.0); Mean Corpuscular Hemoglobin 31.6 pg (27.0-31.0); Mean Corpuscular Volume 94.1 fL (78.0-98.0); Mean Platelet Volume 10.5 fL (7.4-10.4); Monocytes 7 % (0-10); Neutrophil 87 % (42-75); Platelet Count 259 thou/uL (130-400); Platelet Morphology Comment Appears Adequate; RBC Distribution Width 12.6 % (11.5-14.5); Red Blood Cell (RBC) Count 4.09 mill/uL (4.70-6.10); White Blood Cell (WBC) Count 13.5 thou/uL (4.8-10.8)
[2021-05-03 04:48] LABS: ALT (SGPT) 38 U/L (8-55); AST (SGOT) 40 U/L (5-34); Albumin 2.2 g/dL (3.4-4.8); Alkaline Phosphatase 103 U/L (40-110); Anion Gap 10 mmol/L (10-20); BUN (Urea Nitrogen) 33 mg/dL (8.4-25.7); Calc. Creatinine Clearance 130 mL/min (70-130); Calcium 8.9 mg/dL (7.8-10.44); Carbon Dioxide 28 mmol/L (23-31); Chloride 106 mmol/L (98-107); Globulin 3.2 g/dL (2.4-3.5); Glucose 146 mg/dL (80-115); Potassium 4.3 mmol/L (3.5-5.1); Protein, Total 5.4 g/dL (5.8-8.1); Sodium 140 mmol/L (136-145)
[2021-05-03] MEDS: Dexmedetomidine 1,000 MCG in Sodium Chloride 0.9% 250 ML 240 ML IVPB SCH (05:27)
[2021-05-03] MEDS: Meropenem 1 GM in Sodium Chloride 0.9% 100 ML IVPB SCH ×3 (07:23→22:14)
[2021-05-03 08:16] LABS: Actual Bicarbonate (HCO3a) 25.3 mEq/L (22-28); Base Excess (BEa) 2.4 mEq/L (-2.0 to +3.0); CO2 Tension 33.9 mmHg (35.0-45.0); Carboxyhemoglobin (COHb) 0.7 gm% (0.0-3.0); Hemoglobin (Hb) 13.7 g/dL (14.0-18.0); Potassium - ABG Lab 4.09 mmol/L (3.70-5.30); pH, Arterial 7.49 (7.35-7.45)
[2021-05-03 08:17] LABS: O2 Tension (PaO2), arterial 46.5 mmHg (> 80.0); Puncture Site RRA
[2021-05-03 08:21] LABS: ALV-art Gradient 267.625 mmHg (0-20)
[2021-05-03] MEDS: Dexamethasone 10 MG/ML VIAL SLOW IVP SCH (09:50)
[2021-05-03] MEDS: Gabapentin 300 MG CAP PO SCH ×3 (09:50→20:21)
[2021-05-03] MEDS: Aspirin 325 MG TAB PER TUBE SCH (09:50)
[2021-05-03] MEDS: Polyethylene Glycol 3350 17 GM Packet PER TUBE SCH (09:50)
[2021-05-03] MEDS: Enoxaparin Sodium 60 MG/0.6 ML SYRINGE SC SCH ×2 (09:50→20:21)
[2021-05-03] MEDS: Carvedilol 3.125 MG TAB PO SCH (09:50)
[2021-05-03] MEDS: Pantoprazole 40 MG VIAL IVP SCH (09:51)
[2021-05-03] MEDS: Senokot S 8.6-50 MG TAB PO SCH ×2 (09:51→20:21)
[2021-05-03] MEDS: Lansoprazole 3 MG/ML ORAL SUSPENSION PER TUBE SCH (11:22)
[2021-05-03] MEDS: Micafungin 100 MG in Sodium Chloride 0.9% 100 ML IVPB SCH (12:55)
[2021-05-03] MEDS: fentaNYL Citrate-0.9 % NaCl/PF 100 ML IV SCH (12:56)
[2021-05-03] MEDS: Carvedilol 6.25 MG TAB PER TUBE SCH (15:41)
[2021-05-03] MEDS: HumaLOG 300 UNITS/3 ML VIAL SC PRN ×2 (16:15→22:24)
[2021-05-03] MEDS: Atorvastatin Calcium 40 MG TAB PO SCH (20:20)
[2021-05-03] MEDS: BARICITINIB 2 MG TAB PO SCH (20:21)
[2021-05-04] MEDS: Dexmedetomidine 1,000 MCG in Sodium Chloride 0.9% 250 ML 240 ML IVPB SCH ×2 (02:00→19:57)
[2021-05-04] MEDS: HumaLOG 300 UNITS/3 ML VIAL SC PRN ×3 (04:54→21:55)
[2021-05-04] MEDS: Meropenem 1 GM in Sodium Chloride 0.9% 100 ML IVPB SCH ×3 (04:57→21:41)
[2021-05-04 04:58] LABS: Band 4 % (5-11); Hemoglobin 13.5 g/dL (14.0-18.0); Lymphocytes 10 % (21-51); MDiff Complete? YES; Mean Corpuscular HGB CONC 34.1 g/dL (32.0-36.0); Mean Corpuscular Hemoglobin 31.8 pg (27.0-31.0); Mean Corpuscular Volume 93.2 fL (78.0-98.0); Mean Platelet Volume 10.1 fL (7.4-10.4); Monocytes 5 % (0-10); Neutrophil 81 % (42-75); Platelet Count 318 thou/uL (130-400); Platelet Morphology Comment Appears Adequate; RBC Distribution Width 12.5 % (11.5-14.5); RBC Morphology Normal; Red Blood Cell (RBC) Count 4.23 mill/uL (4.70-6.10); White Blood Cell (WBC) Count 12.9 thou/uL (4.8-10.8)
[2021-05-04 05:09] LABS: ALT (SGPT) 43 U/L (8-55); AST (SGOT) 35 U/L (5-34); Albumin 2.4 g/dL (3.4-4.8); Alkaline Phosphatase 117 U/L (40-110); Anion Gap 12 mmol/L (10-20); BUN (Urea Nitrogen) 32 mg/dL (8.4-25.7); Bilirubin, Total 0.9 mg/dL (0.2-1.2); Calc. Creatinine Clearance 129 mL/min (70-130); Calcium 9.3 mg/dL (7.8-10.44); Carbon Dioxide 27 mmol/L (23-31); Chloride 102 mmol/L (98-107); Globulin 3.3 g/dL (2.4-3.5); Glucose 178 mg/dL (80-115); Potassium 4.2 mmol/L (3.5-5.1); Protein, Total 5.7 g/dL (5.8-8.1); Sodium 137 mmol/L (136-145)
[2021-05-04] MEDS: fentaNYL Citrate-0.9 % NaCl/PF 100 ML IV SCH ×2 (06:22→21:41)
[2021-05-04 08:12] LABS: Actual Bicarbonate (HCO3a) 25.2 mEq/L (22-28); Base Excess (BEa) 2.8 mEq/L (-2.0 to +3.0); CO2 Tension 31.9 mmHg (35.0-45.0); Calcium, Ionized (arterial) 1.22 mmol/L (1.12-1.30); Carboxyhemoglobin (COHb) 0.5 gm% (0.0-3.0); Hemoglobin (Hb) 13.7 g/dL (14.0-18.0); Potassium - ABG Lab 4.16 mmol/L (3.70-5.30); pH, Arterial 7.52 (7.35-7.45)
[2021-05-04 08:13] LABS: O2 Tension (PaO2), arterial 57.2 mmHg (> 80.0); Puncture Site LRA
[2021-05-04 08:18] LABS: ALV-art Gradient -25.775 mmHg (0-20)
[2021-05-04] MEDS: Polyethylene Glycol 3350 17 GM Packet PER TUBE SCH (08:47)
[2021-05-04] MEDS: Aspirin 325 MG TAB PER TUBE SCH (08:47)
[2021-05-04] MEDS: Enoxaparin Sodium 60 MG/0.6 ML SYRINGE SC SCH ×2 (08:47→19:57)
[2021-05-04] MEDS: Senokot S 8.6-50 MG TAB PO SCH ×2 (08:48→19:59)
[2021-05-04] MEDS: Pantoprazole 40 MG VIAL IVP SCH (08:48)
[2021-05-04] MEDS: Gabapentin 300 MG CAP PO SCH ×3 (08:48→19:57)
[2021-05-04] MEDS: Dexamethasone 10 MG/ML VIAL SLOW IVP SCH (08:48)
[2021-05-04] MEDS: Carvedilol 6.25 MG TAB PER TUBE SCH ×2 (08:49→17:06)
[2021-05-04] MEDS ORDERED: Sodium Chloride 3% 100 ML IVPB SCH (12:45)
[2021-05-04] MEDS: Micafungin 100 MG in Sodium Chloride 0.9% 100 ML IVPB SCH (13:14)
[2021-05-04] MEDS ORDERED: Furosemide 40 MG/4 ML VIAL SLOW IVP SCH (14:00)
[2021-05-04] MEDS: Lorazepam 2 MG/ML VIAL SLOW IVP PRN ×2 (15:04→22:48)
[2021-05-04] MEDS: Atorvastatin Calcium 40 MG TAB PO SCH (19:58)
[2021-05-04] MEDS: BARICITINIB 2 MG TAB PO SCH (19:58)
[2021-05-05 04:57] LABS: ALT (SGPT) 51 U/L (8-55); AST (SGOT) 35 U/L (5-34); Albumin 2.3 g/dL (3.4-4.8); Alkaline Phosphatase 138 U/L (40-110); Anion Gap 15 mmol/L (10-20); BUN (Urea Nitrogen) 36 mg/dL (8.4-25.7); Bilirubin, Total 0.8 mg/dL (0.2-1.2); Calc. Creatinine Clearance 125 mL/min (70-130); Calcium 8.8 mg/dL (7.8-10.44); Carbon Dioxide 25 mmol/L (23-31); Chloride 101 mmol/L (98-107); Globulin 3.2 g/dL (2.4-3.5); Glucose 197 mg/dL (80-115); Potassium 4.3 mmol/L (3.5-5.1); Protein, Total 5.5 g/dL (5.8-8.1); Sodium 137 mmol/L (136-145)
[2021-05-05] MEDS: Meropenem 1 GM in Sodium Chloride 0.9% 100 ML IVPB SCH ×3 (05:47→22:00)
[2021-05-05 07:29] LABS: Hemoglobin 12.9 g/dL (14.0-18.0); Mean Corpuscular HGB CONC 32.9 g/dL (32.0-36.0); Mean Corpuscular Hemoglobin 30.7 pg (27.0-31.0); Mean Corpuscular Volume 93.4 fL (78.0-98.0); Platelet Count 308 thou/uL (130-400); RBC Distribution Width 12.4 % (11.5-14.5); White Blood Cell (WBC) Count 16.3 thou/uL (4.8-10.8)
[2021-05-05] MEDS: Dexmedetomidine 1,000 MCG in Sodium Chloride 0.9% 250 ML 240 ML IVPB SCH (09:26)
[2021-05-05] MEDS: Gabapentin 300 MG CAP PO SCH ×3 (09:26→21:09)
[2021-05-05] MEDS: Enoxaparin Sodium 60 MG/0.6 ML SYRINGE SC SCH ×2 (09:27→21:07)
[2021-05-05] MEDS: Senokot S 8.6-50 MG TAB PO SCH ×2 (09:27→21:12)
[2021-05-05] MEDS: Dexamethasone 10 MG/ML VIAL SLOW IVP SCH (09:27)
[2021-05-05] MEDS: Aspirin 325 MG TAB PER TUBE SCH (09:27)
[2021-05-05] MEDS: Pantoprazole 40 MG VIAL IVP SCH (09:27)
[2021-05-05] MEDS: Carvedilol 6.25 MG TAB PER TUBE SCH ×2 (09:29→18:40)
[2021-05-05 10:41] LABS: Band 3 % (5-11); Lymphocytes 10 % (21-51); MDiff Complete? YES; Monocytes 5 % (0-10); Neutrophil 82 % (42-75); Platelet Morphology Comment Appears Adequate; Polychromasia SLIGHT = 2-3 cells (100X) (0-2/hpf)
[2021-05-05] MEDS: HumaLOG 300 UNITS/3 ML VIAL SC PRN ×3 (10:42→22:25)
[2021-05-05] MEDS: Lorazepam 2 MG/ML VIAL SLOW IVP PRN ×2 (13:58→19:58)
[2021-05-05] MEDS: fentaNYL Citrate-0.9 % NaCl/PF 100 ML IV SCH (13:58)
[2021-05-05] MEDS: Micafungin 100 MG in Sodium Chloride 0.9% 100 ML IVPB SCH (14:00)
[2021-05-05] MEDS: Atorvastatin Calcium 40 MG TAB PO SCH (21:08)
[2021-05-05] MEDS: BARICITINIB 2 MG TAB PO SCH (21:08)
[2021-05-06 05:03] LABS: Hemoglobin 12.6 g/dL (14.0-18.0); Mean Corpuscular HGB CONC 33.4 g/dL (32.0-36.0); Mean Corpuscular Volume 92.7 fL (78.0-98.0); Mean Platelet Volume 10.3 fL (7.4-10.4); Platelet Count 332 thou/uL (130-400); RBC Distribution Width 12.3 % (11.5-14.5); Red Blood Cell (RBC) Count 4.07 mill/uL (4.70-6.10); White Blood Cell (WBC) Count 14.5 thou/uL (4.8-10.8)
[2021-05-06] MEDS: Meropenem 1 GM in Sodium Chloride 0.9% 100 ML IVPB SCH ×3 (05:07→21:34)
[2021-05-06] MEDS: Dexmedetomidine 1,000 MCG in Sodium Chloride 0.9% 250 ML 240 ML IVPB SCH ×2 (05:07→16:16)
[2021-05-06 05:13] LABS: ALT (SGPT) 63 U/L (8-55); AST (SGOT) 35 U/L (5-34); Albumin 2.4 g/dL (3.4-4.8); Alkaline Phosphatase 139 U/L (40-110); Anion Gap 14 mmol/L (10-20); BUN (Urea Nitrogen) 35 mg/dL (8.4-25.7); Bilirubin, Total 0.9 mg/dL (0.2-1.2); Calc. Creatinine Clearance 0 mL/min (70-130); Calcium 8.8 mg/dL (7.8-10.44); Carbon Dioxide 25 mmol/L (23-31); Chloride 100 mmol/L (98-107); Globulin 3.1 g/dL (2.4-3.5); Glucose 248 mg/dL (80-115); Potassium 4.5 mmol/L (3.5-5.1); Protein, Total 5.5 g/dL (5.8-8.1); Sodium 134 mmol/L (136-145)
[2021-05-06 05:21] LABS: Band 1 % (5-11); Lymphocytes 9 % (21-51); MDiff Complete? YES; Monocytes 3 % (0-10); Neutrophil 87 % (42-75)
[2021-05-06] MEDS: fentaNYL Citrate-0.9 % NaCl/PF 100 ML IV SCH ×2 (05:23→22:15)
[2021-05-06] MEDS: HumaLOG 300 UNITS/3 ML VIAL SC PRN ×4 (06:08→22:11)
[2021-05-06] MEDS: Lorazepam 2 MG/ML VIAL SLOW IVP PRN ×4 (07:40→23:22)
[2021-05-06] MEDS: Pantoprazole 40 MG VIAL IVP SCH (08:14)
[2021-05-06] MEDS: Enoxaparin Sodium 60 MG/0.6 ML SYRINGE SC SCH ×2 (08:14→20:32)
[2021-05-06] MEDS: Senokot S 8.6-50 MG TAB PO SCH ×2 (08:15→20:33)
[2021-05-06] MEDS: Dexamethasone 10 MG/ML VIAL SLOW IVP SCH (08:15)
[2021-05-06] MEDS: Aspirin 325 MG TAB PER TUBE SCH (08:15)
[2021-05-06] MEDS: Gabapentin 300 MG CAP PO SCH ×3 (08:15→20:33)
[2021-05-06] MEDS: Polyethylene Glycol 3350 17 GM Packet PER TUBE SCH (08:15)
[2021-05-06] MEDS: Carvedilol 6.25 MG TAB PER TUBE SCH ×2 (08:15→16:16)
[2021-05-06] MEDS: Micafungin 100 MG in Sodium Chloride 0.9% 100 ML IVPB SCH (13:00)
[2021-05-06] MEDS: BARICITINIB 2 MG TAB PO SCH (20:32)
[2021-05-06] MEDS: Atorvastatin Calcium 40 MG TAB PO SCH (20:33)
[2021-05-07] MEDS: HumaLOG 300 UNITS/3 ML VIAL SC PRN ×3 (03:39→22:04)
[2021-05-07 04:50] LABS: ALT (SGPT) 51 U/L (8-55); AST (SGOT) 28 U/L (5-34); Albumin 2.3 g/dL (3.4-4.8); Alkaline Phosphatase 119 U/L (40-110); Anion Gap 12 mmol/L (10-20); BUN (Urea Nitrogen) 29 mg/dL (8.4-25.7); Bilirubin, Total 0.8 mg/dL (0.2-1.2); Calc. Creatinine Clearance 131 mL/min (70-130); Calcium 8.7 mg/dL (7.8-10.44); Carbon Dioxide 25 mmol/L (23-31); Chloride 100 mmol/L (98-107); Globulin 3.2 g/dL (2.4-3.5); Glucose 220 mg/dL (80-115); Potassium 4.7 mmol/L (3.5-5.1); Protein, Total 5.5 g/dL (5.8-8.1); Sodium 132 mmol/L (136-145)
[2021-05-07] MEDS: Meropenem 1 GM in Sodium Chloride 0.9% 100 ML IVPB SCH ×3 (05:00→22:02)
[2021-05-07] MEDS: Dexmedetomidine 1,000 MCG in Sodium Chloride 0.9% 250 ML 240 ML IVPB SCH (06:14)
[2021-05-07 06:23] LABS: Band 7 % (5-11); Lymphocytes 12 % (21-51); MDiff Complete? YES; Monocytes 2 % (0-10); Neutrophil 79 % (42-75)
[2021-05-07 06:24] LABS: Hemoglobin 12.2 g/dL (14.0-18.0); Mean Corpuscular HGB CONC 33.4 g/dL (32.0-36.0); Mean Corpuscular Hemoglobin 30.7 pg (27.0-31.0); Mean Corpuscular Volume 92.1 fL (78.0-98.0); Mean Platelet Volume 10.1 fL (7.4-10.4); Platelet Count 301 thou/uL (130-400); RBC Distribution Width 12.3 % (11.5-14.5); Red Blood Cell (RBC) Count 3.97 mill/uL (4.70-6.10); White Blood Cell (WBC) Count 12.7 thou/uL (4.8-10.8)
[2021-05-07] MEDS: Enoxaparin Sodium 60 MG/0.6 ML SYRINGE SC SCH ×2 (08:11→20:16)
[2021-05-07] MEDS: Polyethylene Glycol 3350 17 GM Packet PER TUBE SCH (08:11)
[2021-05-07] MEDS: Senokot S 8.6-50 MG TAB PO SCH ×2 (08:12→20:18)
[2021-05-07] MEDS: Pantoprazole 40 MG VIAL IVP SCH (08:12)
[2021-05-07] MEDS: Dexamethasone 10 MG/ML VIAL SLOW IVP SCH (08:12)
[2021-05-07] MEDS: Aspirin 325 MG TAB PER TUBE SCH (08:12)
[2021-05-07] MEDS: Lorazepam 2 MG/ML VIAL SLOW IVP PRN ×3 (08:12→19:32)
[2021-05-07] MEDS: Spironolactone 25 MG TAB PO SCH (08:12)
[2021-05-07] MEDS: Carvedilol 6.25 MG TAB PER TUBE SCH ×2 (08:12→15:37)
[2021-05-07] MEDS: Gabapentin 300 MG CAP PO SCH ×3 (08:12→20:17)
[2021-05-07] MEDS: Morphine 4 MG/ML VIAL SLOW IVP PRN ×2 (10:01→21:59)
[2021-05-07] MEDS: Micafungin 100 MG in Sodium Chloride 0.9% 100 ML IVPB SCH (12:40)
[2021-05-07] MEDS: fentaNYL Citrate-0.9 % NaCl/PF 100 ML IV SCH (13:30)
[2021-05-07] MEDS: Midazolam In 0.9 % NaCl/PF 100 ML IVPB SCH (14:45)
[2021-05-07] MEDS: Atorvastatin Calcium 40 MG TAB PO SCH (20:18)
[2021-05-07] MEDS: BARICITINIB 2 MG TAB PO SCH (21:03)
[2021-05-08] MEDS: Morphine 4 MG/ML VIAL SLOW IVP PRN (00:19)
[2021-05-08] MEDS: Lorazepam 2 MG/ML VIAL SLOW IVP PRN ×7 (00:19→22:40)
[2021-05-08] MEDS: fentaNYL Citrate-0.9 % NaCl/PF 100 ML IV SCH ×2 (03:26→23:37)
[2021-05-08 05:44] LABS: Band 2 % (5-11); Hemoglobin 12.9 g/dL (14.0-18.0); Hypochromia SLIGHT = 6-15 cells (100X) (0-5/hpf); Lymphocytes 14 % (21-51); MDiff Complete? YES; Mean Corpuscular HGB CONC 33.1 g/dL (32.0-36.0); Mean Corpuscular Hemoglobin 30.5 pg (27.0-31.0); Mean Corpuscular Volume 92.2 fL (78.0-98.0); Mean Platelet Volume 9.5 fL (7.4-10.4); Monocytes 8 % (0-10); Neutrophil 76 % (42-75); Platelet Count 388 thou/uL (130-400); Platelet Morphology Comment Appears Adequate; RBC Distribution Width 12.3 % (11.5-14.5); Red Blood Cell (RBC) Count 4.23 mill/uL (4.70-6.10); White Blood Cell (WBC) Count 17.4 thou/uL (4.8-10.8)
[2021-05-08 05:54] LABS: ALT (SGPT) 52 U/L (8-55); AST (SGOT) 26 U/L (5-34); Albumin 2.5 g/dL (3.4-4.8); Alkaline Phosphatase 130 U/L (40-110); Anion Gap 14 mmol/L (10-20); BUN (Urea Nitrogen) 30 mg/dL (8.4-25.7); Calc. Creatinine Clearance 131 mL/min (70-130); Calcium 8.8 mg/dL (7.8-10.44); Carbon Dioxide 23 mmol/L (23-31); Chloride 101 mmol/L (98-107); Globulin 3.1 g/dL (2.4-3.5); Glucose 205 mg/dL (80-115); Potassium 4.2 mmol/L (3.5-5.1); Protein, Total 5.6 g/dL (5.8-8.1); Sodium 134 mmol/L (136-145)
[2021-05-08] MEDS: Meropenem 1 GM in Sodium Chloride 0.9% 100 ML IVPB SCH ×3 (06:02→21:40)
[2021-05-08] MEDS: Vecuronium 10 MG VIAL IV PRN ×5 (07:55→22:41)
[2021-05-08] MEDS: Pantoprazole 40 MG VIAL IVP SCH (08:16)
[2021-05-08] MEDS: Enoxaparin Sodium 60 MG/0.6 ML SYRINGE SC SCH ×2 (08:16→21:38)
[2021-05-08] MEDS: Polyethylene Glycol 3350 17 GM Packet PER TUBE SCH (08:16)
[2021-05-08] MEDS: Carvedilol 6.25 MG TAB PER TUBE SCH ×2 (08:17→15:48)
[2021-05-08] MEDS: Senokot S 8.6-50 MG TAB PO SCH ×2 (08:17→21:38)
[2021-05-08] MEDS: Spironolactone 25 MG TAB PO SCH (08:17)
[2021-05-08] MEDS: Dexamethasone 10 MG/ML VIAL SLOW IVP SCH (08:17)
[2021-05-08] MEDS: Gabapentin 300 MG CAP PO SCH ×3 (08:17→21:38)
[2021-05-08] MEDS: Aspirin 325 MG TAB PER TUBE SCH (08:19)
[2021-05-08 08:25] LABS: Actual Bicarbonate (HCO3a) 25.2 mEq/L (22-28); Base Excess (BEa) 0.8 mEq/L (-2.0 to +3.0); CO2 Tension 39.8 mmHg (35.0-45.0); Calcium, Ionized (arterial) 1.19 mmol/L (1.12-1.30); Carboxyhemoglobin (COHb) 0.2 gm% (0.0-3.0); Hemoglobin (Hb) 14.3 g/dL (14.0-18.0); O2 Tension (PaO2), arterial 57.3 mmHg (> 80.0); Potassium - ABG Lab 4.23 mmol/L (3.70-5.30); Puncture Site RR; pH, Arterial 7.42 (7.35-7.45)
[2021-05-08] MEDS: Midazolam In 0.9 % NaCl/PF 100 ML IVPB SCH (09:20)
[2021-05-08] MEDS: HumaLOG 300 UNITS/3 ML VIAL SC PRN ×3 (09:48→21:44)
[2021-05-08] MEDS: Micafungin 100 MG in Sodium Chloride 0.9% 100 ML IVPB SCH (11:27)
[2021-05-08] MEDS ORDERED: Albumin 5% 250 ML ONE ×2 (15:00→15:01)
[2021-05-08] MEDS: Propofol 1,000 MG/100 ML VIAL IV PRN ×2 (17:27→23:50)
[2021-05-08] MEDS: Atorvastatin Calcium 40 MG TAB PO SCH (21:38)
[2021-05-09] MEDS: Propofol 1,000 MG/100 ML VIAL IV PRN ×3 (05:09→13:25)
[2021-05-09] MEDS: HumaLOG 300 UNITS/3 ML VIAL SC PRN ×4 (05:10→21:29)
[2021-05-09 05:28] LABS: Band 8 % (5-11); Hemoglobin 12.9 g/dL (14.0-18.0); Lymphocytes 2 % (21-51); MDiff Complete? YES; Mean Corpuscular HGB CONC 32.8 g/dL (32.0-36.0); Mean Corpuscular Hemoglobin 30.6 pg (27.0-31.0); Mean Corpuscular Volume 93.4 fL (78.0-98.0); Mean Platelet Volume 9.5 fL (7.4-10.4); Monocytes 3 % (0-10); Neutrophil 87 % (42-75); Platelet Count 375 thou/uL (130-400); RBC Distribution Width 12.5 % (11.5-14.5); White Blood Cell (WBC) Count 26.1 thou/uL (4.8-10.8)
[2021-05-09] MEDS: Meropenem 1 GM in Sodium Chloride 0.9% 100 ML IVPB SCH ×3 (05:36→21:28)
[2021-05-09] MEDS: Lorazepam 2 MG/ML VIAL SLOW IVP PRN ×3 (05:49→13:45)
[2021-05-09] MEDS: Midazolam In 0.9 % NaCl/PF 100 ML IVPB SCH (06:01)
[2021-05-09 06:16] LABS: ALT (SGPT) 36 U/L (8-55); AST (SGOT) 20 U/L (5-34); Albumin 2.9 g/dL (3.4-4.8); Alkaline Phosphatase 125 U/L (40-110); Anion Gap 12 mmol/L (10-20); BUN (Urea Nitrogen) 30 mg/dL (8.4-25.7); Bilirubin, Total 0.9 mg/dL (0.2-1.2); Calc. Creatinine Clearance 127 mL/min (70-130); Calcium 9.4 mg/dL (7.8-10.44); Carbon Dioxide 28 mmol/L (23-31); Chloride 105 mmol/L (98-107); Globulin 2.8 g/dL (2.4-3.5); Glucose 259 mg/dL (80-115); Potassium 4.6 mmol/L (3.5-5.1); Protein, Total 5.7 g/dL (5.8-8.1); Sodium 140 mmol/L (136-145)
[2021-05-09] MEDS: Enoxaparin Sodium 60 MG/0.6 ML SYRINGE SC SCH ×2 (07:41→20:58)
[2021-05-09] MEDS: Senokot S 8.6-50 MG TAB PO SCH ×2 (07:42→20:49)
[2021-05-09] MEDS: Polyethylene Glycol 3350 17 GM Packet PER TUBE SCH (07:42)
[2021-05-09] MEDS: Pantoprazole 40 MG VIAL IVP SCH (07:42)
[2021-05-09] MEDS: Gabapentin 300 MG CAP PO SCH ×3 (07:42→20:58)
[2021-05-09] MEDS: Carvedilol 6.25 MG TAB PER TUBE SCH ×2 (07:42→16:34)
[2021-05-09] MEDS: Spironolactone 25 MG TAB PO SCH (07:42)
[2021-05-09] MEDS: Dexamethasone 10 MG/ML VIAL SLOW IVP SCH (07:42)
[2021-05-09] MEDS: Aspirin 325 MG TAB PER TUBE SCH (07:44)
[2021-05-09 08:03] LABS: Actual Bicarbonate (HCO3a) 22.3 mEq/L (22-28); Base Excess (BEa) -1.5 mEq/L (-2.0 to +3.0); CO2 Tension 34.1 mmHg (35.0-45.0); Calcium, Ionized (arterial) 1.09 mmol/L (1.12-1.30); Carboxyhemoglobin (COHb) 0.6 gm% (0.0-3.0); Hemoglobin (Hb) 10.5 g/dL (14.0-18.0); Potassium - ABG Lab 4.24 mmol/L (3.70-5.30); pH, Arterial 7.43 (7.35-7.45)
[2021-05-09 08:08] LABS: O2 Tension (PaO2), arterial 54.1 mmHg (> 80.0); Puncture Site RRA
[2021-05-09 08:09] LABS: ALV-art Gradient 259.775 mmHg (0-20)
[2021-05-09] MEDS: Vecuronium 10 MG VIAL IV PRN ×3 (10:35→14:45)
[2021-05-09] MEDS ORDERED: VANCOMYCIN IVPB PRN (11:38)
[2021-05-09] MEDS: Micafungin 100 MG in Sodium Chloride 0.9% 100 ML IVPB SCH (12:04)
[2021-05-09] MEDS: VANCOMYCIN 2 GRAM/400 ML BAG 2 GM in Premix Bag 1 BAG IVPB SCH (13:12)
[2021-05-09] MEDS: Atorvastatin Calcium 40 MG TAB PO SCH (20:58)
[2021-05-10] MEDS: VANCOMYCIN 2 GRAM/400 ML BAG 2 GM in Premix Bag 1 BAG IVPB SCH ×2 (02:32→11:47)
[2021-05-10 04:03] LABS: Hemoglobin 12.3 g/dL (14.0-18.0); Mean Corpuscular HGB CONC 32.6 g/dL (32.0-36.0); Mean Corpuscular Hemoglobin 30.6 pg (27.0-31.0); Mean Corpuscular Volume 93.9 fL (78.0-98.0); Mean Platelet Volume 9.5 fL (7.4-10.4); Platelet Count 354 thou/uL (130-400); RBC Distribution Width 12.6 % (11.5-14.5); Red Blood Cell (RBC) Count 4.03 mill/uL (4.70-6.10); White Blood Cell (WBC) Count 19.1 thou/uL (4.8-10.8)
[2021-05-10 04:12] LABS: ALT (SGPT) 31 U/L (8-55); AST (SGOT) 16 U/L (5-34); Albumin 2.7 g/dL (3.4-4.8); Alkaline Phosphatase 112 U/L (40-110); Anion Gap 14 mmol/L (10-20); BUN (Urea Nitrogen) 36 mg/dL (8.4-25.7); Calc. Creatinine Clearance 128 mL/min (70-130); Calcium 9.3 mg/dL (7.8-10.44); Carbon Dioxide 23 mmol/L (23-31); Chloride 104 mmol/L (98-107); Glucose 295 mg/dL (80-115); Magnesium 1.8 mg/dL (1.6-2.6); Potassium 4.2 mmol/L (3.5-5.1); Protein, Total 5.7 g/dL (5.8-8.1); Sodium 137 mmol/L (136-145)
[2021-05-10] MEDS: HumaLOG 300 UNITS/3 ML VIAL SC PRN ×3 (04:18→21:45)
[2021-05-10 04:34] LABS: Band 6 % (5-11); Lymphocytes 2 % (21-51); MDiff Complete? YES; Monocytes 10 % (0-10); Neutrophil 82 % (42-75)
[2021-05-10] MEDS: Meropenem 1 GM in Sodium Chloride 0.9% 100 ML IVPB SCH ×3 (05:22→21:38)
[2021-05-10] MEDS: Propofol 1,000 MG/100 ML VIAL IV PRN ×2 (05:22→13:27)
[2021-05-10] MEDS: Midazolam In 0.9 % NaCl/PF 100 ML IVPB SCH (05:26)
[2021-05-10] MEDS: Carvedilol 6.25 MG TAB PER TUBE SCH ×2 (07:34→16:58)
[2021-05-10] MEDS: Polyethylene Glycol 3350 17 GM Packet PER TUBE SCH (07:34)
[2021-05-10] MEDS: Spironolactone 25 MG TAB PO SCH (07:34)
[2021-05-10] MEDS: Senokot S 8.6-50 MG TAB PO SCH ×2 (07:35→21:23)
[2021-05-10] MEDS: Vecuronium 10 MG VIAL IV PRN ×4 (07:39→19:15)
[2021-05-10] MEDS: Dexamethasone 10 MG/ML VIAL SLOW IVP SCH (07:40)
[2021-05-10] MEDS: Enoxaparin Sodium 60 MG/0.6 ML SYRINGE SC SCH ×2 (07:40→20:27)
[2021-05-10] MEDS: Aspirin 325 MG TAB PER TUBE SCH (07:40)
[2021-05-10] MEDS: Gabapentin 300 MG CAP PO SCH ×3 (07:41→20:27)
[2021-05-10 07:48] LABS: Actual Bicarbonate (HCO3a) 25.7 mEq/L (22-28); Base Excess (BEa) 2.1 mEq/L (-2.0 to +3.0); CO2 Tension 36.6 mmHg (35.0-45.0); Calcium, Ionized (arterial) 1.27 mmol/L (1.12-1.30); Carboxyhemoglobin (COHb) 0.3 gm% (0.0-3.0); Hemoglobin (Hb) 12.2 g/dL (14.0-18.0); O2 Tension (PaO2), arterial 66.5 mmHg (> 80.0); Potassium - ABG Lab 4.07 mmol/L (3.70-5.30); pH, Arterial 7.46 (7.35-7.45)
[2021-05-10] MEDS: fentaNYL Citrate-0.9 % NaCl/PF 100 ML IV SCH (07:48)
[2021-05-10 07:53] LABS: Puncture Site LRA
[2021-05-10] MEDS: Pantoprazole 40 MG VIAL IVP SCH (09:24)
[2021-05-10] MEDS ORDERED: Furosemide 40 MG/4 ML VIAL SLOW IVP SCH (09:45)
[2021-05-10] MEDS: NPH, Human Insulin Isophane 300 UNIT/3 ML VIAL SC SCH ×3 (11:48→23:22)
[2021-05-10] MEDS: Micafungin 100 MG in Sodium Chloride 0.9% 100 ML IVPB SCH (13:17)
[2021-05-10] MEDS: Lorazepam 2 MG/ML VIAL SLOW IVP PRN (20:27)
[2021-05-10] MEDS: Atorvastatin Calcium 40 MG TAB PO SCH (20:28)
[2021-05-10] MEDS: Morphine 4 MG/ML VIAL SLOW IVP PRN (21:38)
[2021-05-10 23:41] LABS: Vancomycin, Trough 27.1 ug/mL
[2021-05-11] MEDS: Lorazepam 2 MG/ML VIAL SLOW IVP PRN (00:14)
[2021-05-11] MEDS: Vecuronium 10 MG VIAL IV PRN ×3 (00:14→16:47)
[2021-05-11] MEDS: Acetaminophen 500 MG TAB PER TUBE PRN (01:38)
[2021-05-11 04:51] LABS: ALT (SGPT) 24 U/L (8-55); AST (SGOT) 13 U/L (5-34); Albumin 2.6 g/dL (3.4-4.8); Alkaline Phosphatase 100 U/L (40-110); Anion Gap 14 mmol/L (10-20); BUN (Urea Nitrogen) 40 mg/dL (8.4-25.7); Bilirubin, Total 0.9 mg/dL (0.2-1.2); Calc. Creatinine Clearance 131 mL/min (70-130); Calcium 9.5 mg/dL (7.8-10.44); Carbon Dioxide 25 mmol/L (23-31); Chloride 105 mmol/L (98-107); Glucose 242 mg/dL (80-115); Magnesium 1.7 mg/dL (1.6-2.6); Potassium 4.2 mmol/L (3.5-5.1); Protein, Total 5.6 g/dL (5.8-8.1); Sodium 140 mmol/L (136-145)
[2021-05-11] MEDS: HumaLOG 300 UNITS/3 ML VIAL SC PRN ×4 (05:01→22:11)
[2021-05-11] MEDS: NPH, Human Insulin Isophane 300 UNIT/3 ML VIAL SC SCH ×3 (05:01→16:14)
[2021-05-11] MEDS: Meropenem 1 GM in Sodium Chloride 0.9% 100 ML IVPB SCH ×3 (05:05→22:20)
[2021-05-11 05:13] LABS: Base Excess (BEa) 0.3 mEq/L (-2.0 to +3.0); CO2 Tension 40.3 mmHg (35.0-45.0); Calcium, Ionized (arterial) 1.25 mmol/L (1.12-1.30); Carboxyhemoglobin (COHb) 0.3 gm% (0.0-3.0); Hemoglobin (Hb) 11.8 g/dL (14.0-18.0); Potassium - ABG Lab 4.08 mmol/L (3.70-5.30); pH, Arterial 7.41 (7.35-7.45)
[2021-05-11 05:15] LABS: Puncture Site LBA
[2021-05-11 05:16] LABS: ALV-art Gradient 244.125 mmHg (0-20)
[2021-05-11 05:27] LABS: Band 2 % (5-11); Hemoglobin 11.8 g/dL (14.0-18.0); Lymphocytes 5 % (21-51); MDiff Complete? YES; Mean Corpuscular HGB CONC 32.3 g/dL (32.0-36.0); Mean Corpuscular Hemoglobin 30.4 pg (27.0-31.0); Mean Corpuscular Volume 94.2 fL (78.0-98.0); Mean Platelet Volume 9.8 fL (7.4-10.4); Monocytes 4 % (0-10); Neutrophil 89 % (42-75); Platelet Count 305 thou/uL (130-400); Platelet Morphology Comment Appears Adequate; RBC Distribution Width 12.7 % (11.5-14.5); RBC Morphology Normal; Red Blood Cell (RBC) Count 3.88 mill/uL (4.70-6.10); White Blood Cell (WBC) Count 18.1 thou/uL (4.8-10.8)
[2021-05-11] MEDS: Propofol 1,000 MG/100 ML VIAL IV PRN ×2 (05:31→16:47)
[2021-05-11] MEDS: Gabapentin 300 MG CAP PO SCH (08:16)
[2021-05-11] MEDS: Dexamethasone 10 MG/ML VIAL SLOW IVP SCH (08:17)
[2021-05-11] MEDS: Carvedilol 6.25 MG TAB PER TUBE SCH ×2 (08:17→16:46)
[2021-05-11] MEDS: Senokot S 8.6-50 MG TAB PO SCH ×2 (08:17→21:01)
[2021-05-11] MEDS: Pantoprazole 40 MG VIAL IVP SCH (08:17)
[2021-05-11] MEDS: Polyethylene Glycol 3350 17 GM Packet PER TUBE SCH (08:17)
[2021-05-11] MEDS: Spironolactone 25 MG TAB PO SCH (08:17)
[2021-05-11] MEDS: Enoxaparin Sodium 60 MG/0.6 ML SYRINGE SC SCH ×2 (08:17→21:01)
[2021-05-11] MEDS: Aspirin 325 MG TAB PER TUBE SCH (08:41)
[2021-05-11] MEDS: Fentanyl CADD 100 ML IV SCH (11:00)
[2021-05-11] MEDS: VANCOMYCIN 1.25 GM/250 ML BAG 1.25 GM in Premix Bag 1 BAG IVPB SCH (11:02)
[2021-05-11] MEDS: Micafungin 100 MG in Sodium Chloride 0.9% 100 ML IVPB SCH (12:25)
[2021-05-11] MEDS: Midazolam In 0.9 % NaCl/PF 100 ML IVPB SCH (19:26)
[2021-05-11] MEDS: Atorvastatin Calcium 40 MG TAB PO SCH (21:02)
[2021-05-12] MEDS: Propofol 1,000 MG/100 ML VIAL IV PRN ×2 (00:43→06:14)
[2021-05-12] MEDS: VANCOMYCIN 1.25 GM/250 ML BAG 1.25 GM in Premix Bag 1 BAG IVPB SCH ×2 (00:43→12:35)
[2021-05-12] MEDS: NPH, Human Insulin Isophane 300 UNIT/3 ML VIAL SC SCH ×4 (00:43→21:33)
[2021-05-12] MEDS: HumaLOG 300 UNITS/3 ML VIAL SC PRN ×4 (04:00→21:34)
[2021-05-12 05:06] LABS: Hemoglobin 12.2 g/dL (14.0-18.0); Mean Corpuscular HGB CONC 32.4 g/dL (32.0-36.0); Mean Corpuscular Hemoglobin 30.7 pg (27.0-31.0); Mean Corpuscular Volume 94.9 fL (78.0-98.0); Mean Platelet Volume 9.3 fL (7.4-10.4); Platelet Count 312 thou/uL (130-400); RBC Distribution Width 12.7 % (11.5-14.5); Red Blood Cell (RBC) Count 3.97 mill/uL (4.70-6.10); White Blood Cell (WBC) Count 17.7 thou/uL (4.8-10.8)
[2021-05-12 05:07] LABS: Band 14 % (5-11); Hypochromia SLIGHT = 6-15 cells (100X) (0-5/hpf); Lymphocytes 3 % (21-51); MDiff Complete? YES; Monocytes 11 % (0-10); Neutrophil 72 % (42-75); Platelet Morphology Comment Appears Adequate
[2021-05-12 05:12] LABS: ALT (SGPT) 27 U/L (8-55); AST (SGOT) 13 U/L (5-34); Albumin 2.8 g/dL (3.4-4.8); Alkaline Phosphatase 119 U/L (40-110); Anion Gap 15 mmol/L (10-20); BUN (Urea Nitrogen) 41 mg/dL (8.4-25.7); Bilirubin, Total 0.6 mg/dL (0.2-1.2); Calc. Creatinine Clearance 130 mL/min (70-130); Calcium 9.6 mg/dL (7.8-10.44); Carbon Dioxide 25 mmol/L (23-31); Chloride 104 mmol/L (98-107); Globulin 3.2 g/dL (2.4-3.5); Glucose 306 mg/dL (80-115); Magnesium 1.9 mg/dL (1.6-2.6); Potassium 4.6 mmol/L (3.5-5.1); Sodium 139 mmol/L (136-145)
[2021-05-12] MEDS: Fentanyl CADD 100 ML IV SCH ×2 (05:19→19:02)
[2021-05-12] MEDS: Meropenem 1 GM in Sodium Chloride 0.9% 100 ML IVPB SCH (06:14)
[2021-05-12 08:15] LABS: Actual Bicarbonate (HCO3a) 27.8 mEq/L (22-28); Base Excess (BEa) 1.6 mEq/L (-2.0 to +3.0); CO2 Tension 50.6 mmHg (35.0-45.0); Calcium, Ionized (arterial) 1.26 mmol/L (1.12-1.30); Carboxyhemoglobin (COHb) 0.4 gm% (0.0-3.0); Potassium - ABG Lab 4.34 mmol/L (3.70-5.30); pH, Arterial 7.36 (7.35-7.45)
[2021-05-12 08:16] LABS: O2 Tension (PaO2), arterial 55.6 mmHg (> 80.0); Puncture Site LRA
[2021-05-12] MEDS ORDERED: Norepinephrine 8 MG/0.9% NS 250 ML IVPB SCH (09:15)
[2021-05-12] MEDS: Pantoprazole 40 MG VIAL IVP SCH (10:06)
[2021-05-12] MEDS: Enoxaparin Sodium 60 MG/0.6 ML SYRINGE SC SCH ×2 (10:07→21:19)
[2021-05-12] MEDS: Spironolactone 25 MG TAB PO SCH (10:07)
[2021-05-12] MEDS: Aspirin 325 MG TAB PER TUBE SCH (10:07)
[2021-05-12] MEDS: Senokot S 8.6-50 MG TAB PO SCH ×2 (10:08→21:04)
[2021-05-12] MEDS: Polyethylene Glycol 3350 17 GM Packet PER TUBE SCH (10:09)
[2021-05-12] MEDS: Dexamethasone 10 MG/ML VIAL SLOW IVP SCH (10:09)
[2021-05-12] MEDS: Carvedilol 6.25 MG TAB PER TUBE SCH ×2 (10:09→16:52)
[2021-05-12] MEDS: Micafungin 100 MG in Sodium Chloride 0.9% 100 ML IVPB SCH (12:35)
[2021-05-12] MEDS: Morphine 4 MG/ML VIAL SLOW IVP PRN ×2 (18:05→18:46)
[2021-05-12] MEDS: Lorazepam 2 MG/ML VIAL SLOW IVP PRN ×2 (18:05→19:43)
[2021-05-12] MEDS: Atorvastatin Calcium 40 MG TAB PO SCH (21:04)
[2021-05-12 23:14] LABS: Vancomycin, Trough 20.3 ug/mL
[2021-05-13] MEDS: Midazolam In 0.9 % NaCl/PF 100 ML IVPB SCH ×2 (00:34→15:52)
[2021-05-13] MEDS: Fentanyl CADD 100 ML IV SCH ×2 (04:20→15:16)
[2021-05-13] MEDS: HumaLOG 300 UNITS/3 ML VIAL SC PRN ×4 (04:58→21:57)
[2021-05-13 05:20] LABS: Band 8 % (5-11); Eosinophils 1 % (0-10); Hemoglobin 12.4 g/dL (14.0-18.0); Hypochromia SLIGHT = 6-15 cells (100X) (0-5/hpf); Lymphocytes 4 % (21-51); MDiff Complete? YES; Mean Corpuscular HGB CONC 32.6 g/dL (32.0-36.0); Mean Corpuscular Hemoglobin 30.7 pg (27.0-31.0); Mean Corpuscular Volume 94.4 fL (78.0-98.0); Mean Platelet Volume 8.8 fL (7.4-10.4); Monocytes 4 % (0-10); Neutrophil 83 % (42-75); Platelet Count 284 thou/uL (130-400); Platelet Morphology Comment Appears Adequate; RBC Distribution Width 12.6 % (11.5-14.5); Red Blood Cell (RBC) Count 4.05 mill/uL (4.70-6.10); White Blood Cell (WBC) Count 14.3 thou/uL (4.8-10.8)
[2021-05-13 05:30] LABS: ALT (SGPT) 26 U/L (8-55); AST (SGOT) 16 U/L (5-34); Albumin 2.9 g/dL (3.4-4.8); Alkaline Phosphatase 128 U/L (40-110); Anion Gap 12 mmol/L (10-20); BUN (Urea Nitrogen) 36 mg/dL (8.4-25.7); Bilirubin, Total 0.7 mg/dL (0.2-1.2); Calc. Creatinine Clearance 152 mL/min (70-130); Calcium 8.8 mg/dL (7.8-10.44); Carbon Dioxide 29 mmol/L (23-31); Chloride 103 mmol/L (98-107); Globulin 2.5 g/dL (2.4-3.5); Glucose 262 mg/dL (80-115); Potassium 4.9 mmol/L (3.5-5.1); Protein, Total 5.4 g/dL (5.8-8.1); Sodium 139 mmol/L (136-145)
[2021-05-13] MEDS: Vecuronium 10 MG VIAL IV PRN (07:41)
[2021-05-13] MEDS: Lorazepam 2 MG/ML VIAL SLOW IVP PRN (07:41)
[2021-05-13] MEDS: Senokot S 8.6-50 MG TAB PO SCH ×2 (07:42→21:53)
[2021-05-13] MEDS: Polyethylene Glycol 3350 17 GM Packet PER TUBE SCH (07:42)
[2021-05-13] MEDS: Pantoprazole 40 MG VIAL IVP SCH (07:43)
[2021-05-13] MEDS: Dexamethasone 10 MG/ML VIAL SLOW IVP SCH (07:43)
[2021-05-13] MEDS: Aspirin 325 MG TAB PER TUBE SCH (07:44)
[2021-05-13] MEDS: Carvedilol 6.25 MG TAB PER TUBE SCH ×2 (07:44→15:51)
[2021-05-13] MEDS: Spironolactone 25 MG TAB PO SCH (07:44)
[2021-05-13 08:19] LABS: Actual Bicarbonate (HCO3a) 28.8 mEq/L (22-28); Base Excess (BEa) 3.4 mEq/L (-2.0 to +3.0); Calcium, Ionized (arterial) 1.24 mmol/L (1.12-1.30); Carboxyhemoglobin (COHb) 0.6 gm% (0.0-3.0); Hemoglobin (Hb) 13.2 g/dL (14.0-18.0); Potassium - ABG Lab 4.46 mmol/L (3.70-5.30); pH, Arterial 7.41 (7.35-7.45)
[2021-05-13 08:21] LABS: O2 Tension (PaO2), arterial 54.4 mmHg (> 80.0); Puncture Site RRA
[2021-05-13] MEDS: NPH, Human Insulin Isophane 300 UNIT/3 ML VIAL SC SCH ×2 (09:14→21:56)
[2021-05-13] MEDS: Enoxaparin Sodium 60 MG/0.6 ML SYRINGE SC SCH ×2 (09:15→21:53)
[2021-05-13] MEDS ORDERED: Sodium Chloride 3% 100 ML IVPB SCH (10:30)
[2021-05-13] MEDS ORDERED: NPH, Human Insulin Isophane 300 UNIT/3 ML VIAL SC SCH (10:30)
[2021-05-13] MEDS: Atorvastatin Calcium 40 MG TAB PO SCH (21:53)
[2021-05-14] MEDS: Fentanyl CADD 100 ML IV SCH ×2 (01:20→13:44)
[2021-05-14] MEDS: HumaLOG 300 UNITS/3 ML VIAL SC PRN ×4 (04:27→21:33)
[2021-05-14 05:06] LABS: Hemoglobin 13.7 g/dL (14.0-18.0); Hypochromia SLIGHT = 6-15 cells (100X) (0-5/hpf); Lymphocytes 9 % (21-51); MDiff Complete? YES; Mean Corpuscular HGB CONC 32.5 g/dL (32.0-36.0); Mean Corpuscular Hemoglobin 30.8 pg (27.0-31.0); Mean Corpuscular Volume 94.7 fL (78.0-98.0); Mean Platelet Volume 9.5 fL (7.4-10.4); Monocytes 4 % (0-10); Neutrophil 87 % (42-75); Platelet Count 294 thou/uL (130-400); Platelet Morphology Comment Appears Adequate; RBC Distribution Width 12.8 % (11.5-14.5); Red Blood Cell (RBC) Count 4.44 mill/uL (4.70-6.10); White Blood Cell (WBC) Count 18.6 thou/uL (4.8-10.8)
[2021-05-14 05:14] LABS: ALT (SGPT) 29 U/L (8-55); AST (SGOT) 19 U/L (5-34); Alkaline Phosphatase 131 U/L (40-110); Anion Gap 13 mmol/L (10-20); BUN (Urea Nitrogen) 32 mg/dL (8.4-25.7); Bilirubin, Total 0.7 mg/dL (0.2-1.2); Calc. Creatinine Clearance 145 mL/min (70-130); Calcium 9.5 mg/dL (7.8-10.44); Carbon Dioxide 30 mmol/L (23-31); Chloride 102 mmol/L (98-107); Globulin 3.3 g/dL (2.4-3.5); Glucose 197 mg/dL (80-115); Potassium 4.6 mmol/L (3.5-5.1); Protein, Total 6.3 g/dL (5.8-8.1); Sodium 140 mmol/L (136-145)
[2021-05-14 08:39] LABS: Actual Bicarbonate (HCO3a) 30.1 mEq/L (22-28); Analyzer IN Cardio ER; Base Excess (BEa) 3.5 mEq/L (-2.0 to +3.0); CO2 Tension 53.7 mmHg (35.0-45.0); Calcium, Ionized (arterial) 1.23 mmol/L (1.12-1.30); Carboxyhemoglobin (COHb) 0.4 gm% (0.0-3.0); Hemoglobin (Hb) 13.7 g/dL (14.0-18.0); pH, Arterial 7.37 (7.35-7.45)
[2021-05-14 08:40] LABS: ALV-art Gradient 302.775 mmHg (0-20); O2 Tension (PaO2), arterial 57.9 mmHg (> 80.0); Puncture Site LRA
[2021-05-14] MEDS: Propofol 1,000 MG/100 ML VIAL IV PRN (09:51)
[2021-05-14] MEDS: Lorazepam 2 MG/ML VIAL SLOW IVP PRN ×2 (10:04→17:34)
[2021-05-14] MEDS: Enoxaparin Sodium 60 MG/0.6 ML SYRINGE SC SCH ×2 (10:07→21:06)
[2021-05-14] MEDS: NPH, Human Insulin Isophane 300 UNIT/3 ML VIAL SC SCH ×2 (10:08→21:32)
[2021-05-14] MEDS: Pantoprazole 40 MG VIAL IVP SCH (10:10)
[2021-05-14] MEDS: Polyethylene Glycol 3350 17 GM Packet PER TUBE SCH (10:13)
[2021-05-14] MEDS: Carvedilol 6.25 MG TAB PER TUBE SCH ×3 (10:13→17:13)
[2021-05-14] MEDS: Dexamethasone 10 MG/ML VIAL SLOW IVP SCH (10:14)
[2021-05-14] MEDS: Senokot S 8.6-50 MG TAB PO SCH ×2 (11:22→21:06)
[2021-05-14] MEDS: Aspirin 325 MG TAB PER TUBE SCH (12:14)
[2021-05-14] MEDS: Midazolam In 0.9 % NaCl/PF 100 ML IVPB SCH (17:43)
[2021-05-14] MEDS: Atorvastatin Calcium 40 MG TAB PO SCH (21:06)
[2021-05-15] MEDS: HumaLOG 300 UNITS/3 ML VIAL SC PRN ×3 (04:44→16:31)
[2021-05-15 05:04] LABS: ALT (SGPT) 34 U/L (8-55); AST (SGOT) 22 U/L (5-34); Albumin 2.8 g/dL (3.4-4.8); Alkaline Phosphatase 125 U/L (40-110); Anion Gap 10 mmol/L (10-20); BUN (Urea Nitrogen) 36 mg/dL (8.4-25.7); Calc. Creatinine Clearance 146 mL/min (70-130); Calcium 9.3 mg/dL (7.8-10.44); Carbon Dioxide 30 mmol/L (23-31); Chloride 99 mmol/L (98-107); Globulin 3.1 g/dL (2.4-3.5); Glucose 267 mg/dL (80-115); Potassium 4.3 mmol/L (3.5-5.1); Protein, Total 5.9 g/dL (5.8-8.1); Sodium 135 mmol/L (136-145)
[2021-05-15] MEDS: Fentanyl CADD 100 ML IV SCH ×2 (05:34→20:09)
[2021-05-15 05:40] LABS: Hemoglobin 12.8 g/dL (14.0-18.0); Lymphocytes 10 % (21-51); MDiff Complete? YES; Mean Corpuscular HGB CONC 32.8 g/dL (32.0-36.0); Mean Corpuscular Hemoglobin 30.5 pg (27.0-31.0); Mean Corpuscular Volume 92.9 fL (78.0-98.0); Mean Platelet Volume 8.5 fL (7.4-10.4); Monocytes 5 % (0-10); Neutrophil 85 % (42-75); Platelet Count 266 thou/uL (130-400); Platelet Morphology Comment Appears Adequate; RBC Distribution Width 12.7 % (11.5-14.5); RBC Morphology Normal; Red Blood Cell (RBC) Count 4.19 mill/uL (4.70-6.10); White Blood Cell (WBC) Count 15.4 thou/uL (4.8-10.8)
[2021-05-15 07:46] LABS: Base Excess (BEa) 8.1 mEq/L (-2.0 to +3.0); CO2 Tension 37.3 mmHg (35.0-45.0); Calcium, Ionized (arterial) 1.18 mmol/L (1.12-1.30); Potassium - ABG Lab 4.24 mmol/L (3.70-5.30); pH, Arterial 7.54 (7.35-7.45)
[2021-05-15 07:54] LABS: Puncture Site RRA
[2021-05-15 07:55] LABS: ALV-art Gradient 333.175 mmHg (0-20)
[2021-05-15] MEDS: Pantoprazole 40 MG VIAL IVP SCH (08:23)
[2021-05-15] MEDS: Dexamethasone 10 MG/ML VIAL SLOW IVP SCH (08:23)
[2021-05-15] MEDS: Enoxaparin Sodium 60 MG/0.6 ML SYRINGE SC SCH ×2 (08:23→20:24)
[2021-05-15] MEDS: Senokot S 8.6-50 MG TAB PO SCH ×2 (08:23→20:24)
[2021-05-15] MEDS: Carvedilol 6.25 MG TAB PER TUBE SCH ×4 (08:23→20:24)
[2021-05-15] MEDS: Polyethylene Glycol 3350 17 GM Packet PER TUBE SCH (08:23)
[2021-05-15] MEDS: Aspirin 325 MG TAB PER TUBE SCH (08:23)
[2021-05-15] MEDS: NPH, Human Insulin Isophane 300 UNIT/3 ML VIAL SC SCH ×2 (08:24→20:25)
[2021-05-15] MEDS: Midazolam In 0.9 % NaCl/PF 100 ML IVPB SCH (10:28)
[2021-05-15] MEDS: Atorvastatin Calcium 40 MG TAB PO SCH (20:24)
[2021-05-16] MEDS: HumaLOG 300 UNITS/3 ML VIAL SC PRN ×4 (00:55→18:53)
[2021-05-16] MEDS: Lorazepam 2 MG/ML VIAL SLOW IVP PRN ×3 (02:01→22:20)
[2021-05-16 03:58] LABS: Band 3 % (5-11); Hemoglobin 12.6 g/dL (14.0-18.0); Hypochromia SLIGHT = 6-15 cells (100X) (0-5/hpf); Lymphocytes 14 % (21-51); MDiff Complete? YES; Mean Corpuscular HGB CONC 33.6 g/dL (32.0-36.0); Mean Corpuscular Hemoglobin 30.9 pg (27.0-31.0); Mean Corpuscular Volume 92.2 fL (78.0-98.0); Mean Platelet Volume 9.1 fL (7.4-10.4); Monocytes 3 % (0-10); Neutrophil 80 % (42-75); Platelet Count 237 thou/uL (130-400); RBC Distribution Width 12.7 % (11.5-14.5); Red Blood Cell (RBC) Count 4.07 mill/uL (4.70-6.10); White Blood Cell (WBC) Count 12.6 thou/uL (4.8-10.8)
[2021-05-16] MEDS: Midazolam In 0.9 % NaCl/PF 100 ML IVPB SCH ×2 (04:07→19:33)
[2021-05-16 04:10] LABS: ALT (SGPT) 31 U/L (8-55); AST (SGOT) 16 U/L (5-34); Albumin 2.8 g/dL (3.4-4.8); Alkaline Phosphatase 117 U/L (40-110); Anion Gap 12 mmol/L (10-20); BUN (Urea Nitrogen) 34 mg/dL (8.4-25.7); Bilirubin, Total 0.8 mg/dL (0.2-1.2); Calc. Creatinine Clearance 162 mL/min (70-130); Calcium 9.1 mg/dL (7.8-10.44); Carbon Dioxide 28 mmol/L (23-31); Chloride 98 mmol/L (98-107); Glucose 223 mg/dL (80-115); Potassium 4.1 mmol/L (3.5-5.1); Protein, Total 5.8 g/dL (5.8-8.1); Sodium 134 mmol/L (136-145)
[2021-05-16 07:43] LABS: Base Excess (BEa) 3.7 mEq/L (-2.0 to +3.0); Calcium, Ionized (arterial) 1.19 mmol/L (1.12-1.30); Carboxyhemoglobin (COHb) 0.3 gm% (0.0-3.0); Hemoglobin (Hb) 11.7 g/dL (14.0-18.0); Potassium - ABG Lab 3.97 mmol/L (3.70-5.30); pH, Arterial 7.49 (7.35-7.45)
[2021-05-16 08:42] LABS: O2 Tension (PaO2), arterial 53.8 mmHg (> 80.0); Puncture Site LRA
[2021-05-16] MEDS: Pantoprazole 40 MG VIAL IVP SCH (08:49)
[2021-05-16] MEDS: Dexamethasone 10 MG/ML VIAL SLOW IVP SCH (08:49)
[2021-05-16] MEDS: Senokot S 8.6-50 MG TAB PO SCH ×2 (08:49→20:29)
[2021-05-16] MEDS: Polyethylene Glycol 3350 17 GM Packet PER TUBE SCH (08:49)
[2021-05-16] MEDS: Enoxaparin Sodium 60 MG/0.6 ML SYRINGE SC SCH ×2 (08:49→20:29)
[2021-05-16] MEDS: Carvedilol 6.25 MG TAB PER TUBE SCH ×3 (08:50→20:29)
[2021-05-16] MEDS: NPH, Human Insulin Isophane 300 UNIT/3 ML VIAL SC SCH ×2 (08:55→20:31)
[2021-05-16] MEDS: Aspirin 325 MG TAB PER TUBE SCH (08:59)
[2021-05-16] MEDS: Morphine 4 MG/ML VIAL SLOW IVP PRN (11:04)
[2021-05-16] MEDS: Fentanyl CADD 100 ML IV SCH (12:08)
[2021-05-16] MEDS: Atorvastatin Calcium 40 MG TAB PO SCH (20:29)
[2021-05-17] MEDS: HumaLOG 300 UNITS/3 ML VIAL SC PRN ×4 (00:29→18:18)
[2021-05-17] MEDS: Fentanyl CADD 100 ML IV SCH ×2 (01:14→14:29)
[2021-05-17 02:29] LABS: Actual Bicarbonate (HCO3a) 29.5 mEq/L (22-28); Base Excess (BEa) 4.5 mEq/L (-2.0 to +3.0); CO2 Tension 45.5 mmHg (35.0-45.0); Calcium, Ionized (arterial) 1.21 mmol/L (1.12-1.30); Carboxyhemoglobin (COHb) 0.3 gm% (0.0-3.0); Hemoglobin (Hb) 12.8 g/dL (14.0-18.0); Potassium - ABG Lab 4.15 mmol/L (3.70-5.30); pH, Arterial 7.43 (7.35-7.45)
[2021-05-17 02:38] LABS: O2 Tension (PaO2), arterial 53.6 mmHg (> 80.0); Puncture Site LBR
[2021-05-17 02:39] LABS: ALV-art Gradient 281.675 mmHg (0-20)
[2021-05-17 04:07] LABS: Band 9 % (5-11); Eosinophils 1 % (0-10); Lymphocytes 13 % (21-51); MDiff Complete? YES; Mean Corpuscular HGB CONC 33.1 g/dL (32.0-36.0); Mean Corpuscular Hemoglobin 30.8 pg (27.0-31.0); Mean Corpuscular Volume 92.9 fL (78.0-98.0); Mean Platelet Volume 9.9 fL (7.4-10.4); Monocytes 8 % (0-10); Neutrophil 69 % (42-75); Platelet Count 211 thou/uL (130-400); Platelet Morphology Comment Appears Adequate; RBC Distribution Width 12.8 % (11.5-14.5); Red Blood Cell (RBC) Count 4.21 mill/uL (4.70-6.10); White Blood Cell (WBC) Count 12.1 thou/uL (4.8-10.8)
[2021-05-17 04:19] LABS: ALT (SGPT) 32 U/L (8-55); AST (SGOT) 19 U/L (5-34); Albumin 2.7 g/dL (3.4-4.8); Alkaline Phosphatase 119 U/L (40-110); Anion Gap 12 mmol/L (10-20); BUN (Urea Nitrogen) 30 mg/dL (8.4-25.7); Bilirubin, Total 0.8 mg/dL (0.2-1.2); Calc. Creatinine Clearance 151 mL/min (70-130); Carbon Dioxide 29 mmol/L (23-31); Chloride 99 mmol/L (98-107); Globulin 3.1 g/dL (2.4-3.5); Glucose 188 mg/dL (80-115); Potassium 4.2 mmol/L (3.5-5.1); Protein, Total 5.8 g/dL (5.8-8.1); Sodium 136 mmol/L (136-145)
[2021-05-17] MEDS: Midazolam In 0.9 % NaCl/PF 100 ML IVPB SCH ×2 (08:00→20:14)
[2021-05-17] MEDS: Polyethylene Glycol 3350 17 GM Packet PER TUBE SCH (10:11)
[2021-05-17] MEDS: Enoxaparin Sodium 60 MG/0.6 ML SYRINGE SC SCH (10:11)
[2021-05-17] MEDS: Pantoprazole 40 MG VIAL IVP SCH ×2 (10:12→10:16)
[2021-05-17] MEDS: Dexamethasone 10 MG/ML VIAL SLOW IVP SCH (10:16)
[2021-05-17] MEDS: Senokot S 8.6-50 MG TAB PO SCH ×2 (10:16→20:12)
[2021-05-17] MEDS: Aspirin 325 MG TAB PER TUBE SCH (10:17)
[2021-05-17] MEDS: NPH, Human Insulin Isophane 300 UNIT/3 ML VIAL SC SCH ×2 (11:02→20:12)
[2021-05-17] MEDS: Carvedilol 3.125 MG TAB PER TUBE SCH (15:28)
[2021-05-17] MEDS: Atorvastatin Calcium 40 MG TAB PO SCH (20:12)
[2021-05-17] MEDS ORDERED: Lidocaine 1% w/Epinephrine 1:100K 20 ML VIAL IJ SCH (21:00)
[2021-05-17] MEDS: Lorazepam 2 MG/ML VIAL SLOW IVP PRN (22:19)
[2021-05-18] MEDS: Lorazepam 2 MG/ML VIAL SLOW IVP PRN ×2 (00:13→21:01)
[2021-05-18] MEDS: HumaLOG 300 UNITS/3 ML VIAL SC PRN ×2 (00:14→21:24)
[2021-05-18] MEDS: Fentanyl CADD 100 ML IV SCH ×3 (02:06→21:01)
[2021-05-18 06:50] LABS: ALT (SGPT) 29 U/L (8-55); AST (SGOT) 16 U/L (5-34); Alkaline Phosphatase 117 U/L (40-110); Anion Gap 13 mmol/L (10-20); BUN (Urea Nitrogen) 31 mg/dL (8.4-25.7); Calc. Creatinine Clearance 138 mL/min (70-130); Calcium 9.2 mg/dL (7.8-10.44); Carbon Dioxide 25 mmol/L (23-31); Chloride 98 mmol/L (98-107); Glucose 152 mg/dL (80-115); Potassium 4.3 mmol/L (3.5-5.1); Sodium 132 mmol/L (136-145)
[2021-05-18 07:33] LABS: Hemoglobin 12.9 g/dL (14.0-18.0); Mean Corpuscular HGB CONC 32.3 g/dL (32.0-36.0); Mean Corpuscular Hemoglobin 30.7 pg (27.0-31.0); Mean Platelet Volume 8.6 fL (7.4-10.4); Platelet Count 217 thou/uL (130-400); RBC Distribution Width 12.7 % (11.5-14.5); White Blood Cell (WBC) Count 12.4 thou/uL (4.8-10.8)
[2021-05-18 07:34] LABS: Actual Bicarbonate (HCO3a) 27.2 mEq/L (22-28); Base Excess (BEa) 4.3 mEq/L (-2.0 to +3.0); CO2 Tension 34.5 mmHg (35.0-45.0); Calcium, Ionized (arterial) 1.16 mmol/L (1.12-1.30); Carboxyhemoglobin (COHb) 0.4 gm% (0.0-3.0); Hemoglobin (Hb) 12.4 g/dL (14.0-18.0); O2 Tension (PaO2), arterial 70.7 mmHg (> 80.0); Potassium - ABG Lab 4.18 mmol/L (3.70-5.30); pH, Arterial 7.51 (7.35-7.45)
[2021-05-18 07:40] LABS: ALV-art Gradient 242.675 mmHg (0-20); Puncture Site LRA
[2021-05-18] MEDS: Dexamethasone 10 MG/ML VIAL SLOW IVP SCH (07:53)
[2021-05-18] MEDS: Propofol 1,000 MG/100 ML VIAL IV PRN (07:53)
[2021-05-18] MEDS ORDERED: Propofol BOLUS 1,000 MG/100 ML VIAL IV PRN (08:00)
[2021-05-18] MEDS ORDERED: Propofol 1,000 MG/100 ML VIAL IV PRN (08:00)
[2021-05-18] MEDS: Carvedilol 3.125 MG TAB PER TUBE SCH ×2 (08:06→15:51)
[2021-05-18] MEDS: NPH, Human Insulin Isophane 300 UNIT/3 ML VIAL SC SCH ×2 (08:06→21:23)
[2021-05-18] MEDS: Aspirin 325 MG TAB PER TUBE SCH (08:06)
[2021-05-18] MEDS: Lansoprazole 3 MG/ML ORAL SUSPENSION PER TUBE SCH (08:06)
[2021-05-18] MEDS: Polyethylene Glycol 3350 17 GM Packet PER TUBE SCH (08:07)
[2021-05-18] MEDS: Senokot S 8.6-50 MG TAB PO SCH ×2 (08:07→21:21)
[2021-05-18] MEDS: Midazolam In 0.9 % NaCl/PF 100 ML IVPB SCH ×2 (08:09→22:00)
[2021-05-18 08:38] LABS: Band 4 % (5-11); Eosinophils 1 % (0-10); Lymphocytes 13 % (21-51); MDiff Complete? YES; Metamyelocyte 1 % (0-0); Monocytes 2 % (0-10); Neutrophil 79 % (42-75); Platelet Morphology Comment Appears Adequate; RBC Morphology Normal
[2021-05-18] MEDS ORDERED: Midazolam HCl 2 mg/2 ml Vial SLOW IVP PRN (08:50)
[2021-05-18] MEDS: Norepinephrine 8 MG/0.9% NS 250 ML IVPB SCH ×2 (10:17→12:14)
[2021-05-18] MEDS: Vecuronium 10 MG VIAL IV PRN (11:15)
[2021-05-18] MEDS ORDERED: ceFAZolin 2 GM/Dextrose 50 ML 2 GM in Premix Bag 1 BAG IVPB SCH (11:15)
[2021-05-18] MEDS ORDERED: Xylocaine 1% w/ Epi 1:100K 10 ML VIAL NERVE BLCK SCH (21:00)
[2021-05-18] MEDS: Enoxaparin Sodium 60 MG/0.6 ML SYRINGE SC SCH (21:01)
[2021-05-18] MEDS: Atorvastatin Calcium 40 MG TAB PO SCH (21:01)
[2021-05-19] MEDS: Fentanyl CADD 100 ML IV SCH ×3 (05:22→23:10)
[2021-05-19 07:34] LABS: Hemoglobin 12.1 g/dL (14.0-18.0); Mean Corpuscular HGB CONC 33.7 g/dL (32.0-36.0); Mean Corpuscular Hemoglobin 31.3 pg (27.0-31.0); Mean Corpuscular Volume 92.7 fL (78.0-98.0); Mean Platelet Volume 8.5 fL (7.4-10.4); Platelet Count 203 thou/uL (130-400); RBC Distribution Width 12.8 % (11.5-14.5); Red Blood Cell (RBC) Count 3.87 mill/uL (4.70-6.10); White Blood Cell (WBC) Count 16.1 thou/uL (4.8-10.8)
[2021-05-19 07:47] LABS: ALT (SGPT) 25 U/L (8-55); AST (SGOT) 17 U/L (5-34); Albumin 2.9 g/dL (3.4-4.8); Alkaline Phosphatase 108 U/L (40-110); Anion Gap 10 mmol/L (10-20); BUN (Urea Nitrogen) 26 mg/dL (8.4-25.7); Bilirubin, Total 1.2 mg/dL (0.2-1.2); Calc. Creatinine Clearance 152 mL/min (70-130); Calcium 9.1 mg/dL (7.8-10.44); Carbon Dioxide 31 mmol/L (23-31); Chloride 98 mmol/L (98-107); Globulin 2.9 g/dL (2.4-3.5); Glucose 84 mg/dL (80-115); Protein, Total 5.8 g/dL (5.8-8.1); Sodium 135 mmol/L (136-145)
[2021-05-19 08:44] LABS: Band 3 % (5-11); Eosinophils 1 % (0-10); Lymphocytes 11 % (21-51); MDiff Complete? YES; Monocytes 7 % (0-10); Neutrophil 78 % (42-75); Platelet Morphology Comment Appears Adequate; Polychromasia SLIGHT = 2-3 cells (100X) (0-2/hpf)
[2021-05-19] MEDS: Carvedilol 3.125 MG TAB PER TUBE SCH ×2 (10:12→17:38)
[2021-05-19] MEDS: Enoxaparin Sodium 30 MG/0.3 ML SYRINGE SC SCH ×2 (10:13→20:10)
[2021-05-19] MEDS: Senokot S 8.6-50 MG TAB PO SCH ×2 (10:13→20:10)
[2021-05-19] MEDS: Dexamethasone 10 MG/ML VIAL SLOW IVP SCH (10:13)
[2021-05-19] MEDS: Aspirin 325 MG TAB PER TUBE SCH (10:13)
[2021-05-19] MEDS: Polyethylene Glycol 3350 17 GM Packet PER TUBE SCH (10:13)
[2021-05-19] MEDS: NPH, Human Insulin Isophane 300 UNIT/3 ML VIAL SC SCH ×2 (10:14→21:14)
[2021-05-19] MEDS: Lansoprazole 3 MG/ML ORAL SUSPENSION PER TUBE SCH (10:17)
[2021-05-19] MEDS: Enoxaparin Sodium 60 MG/0.6 ML SYRINGE SC SCH (14:11)
[2021-05-19] MEDS: Midazolam In 0.9 % NaCl/PF 100 ML IVPB SCH (16:41)
[2021-05-19] MEDS: HumaLOG 300 UNITS/3 ML VIAL SC PRN ×2 (17:38→21:13)
[2021-05-19] MEDS: Atorvastatin Calcium 40 MG TAB PO SCH (20:10)
[2021-05-19] MEDS: Lorazepam 2 MG/ML VIAL SLOW IVP PRN ×2 (20:40→23:48)
[2021-05-20] MEDS: HumaLOG 300 UNITS/3 ML VIAL SC PRN ×4 (03:38→21:07)
[2021-05-20 04:30] LABS: ALT (SGPT) 25 U/L (8-55); AST (SGOT) 19 U/L (5-34); Albumin 3.1 g/dL (3.4-4.8); Alkaline Phosphatase 127 U/L (40-110); Anion Gap 10 mmol/L (10-20); BUN (Urea Nitrogen) 20 mg/dL (8.4-25.7); Bilirubin, Total 1.3 mg/dL (0.2-1.2); Calc. Creatinine Clearance 157 mL/min (70-130); Calcium 9.5 mg/dL (7.8-10.44); Carbon Dioxide 29 mmol/L (23-31); Chloride 98 mmol/L (98-107); Globulin 3.2 g/dL (2.4-3.5); Glucose 157 mg/dL (80-115); Magnesium 1.5 mg/dL (1.6-2.6); Potassium 3.9 mmol/L (3.5-5.1); Protein, Total 6.3 g/dL (5.8-8.1); Sodium 133 mmol/L (136-145)
[2021-05-20 04:53] LABS: Band 6 % (5-11); Hemoglobin 12.9 g/dL (14.0-18.0); Lymphocytes 6 % (21-51); MDiff Complete? YES; Mean Corpuscular HGB CONC 30.6 g/dL (32.0-36.0); Mean Corpuscular Hemoglobin 28.9 pg (27.0-31.0); Mean Corpuscular Volume 94.3 fL (78.0-98.0); Mean Platelet Volume 8.7 fL (7.4-10.4); Monocytes 10 % (0-10); Neutrophil 78 % (42-75); Platelet Count 239 thou/uL (130-400); RBC Distribution Width 12.8 % (11.5-14.5); Red Blood Cell (RBC) Count 4.49 mill/uL (4.70-6.10); White Blood Cell (WBC) Count 19.3 thou/uL (4.8-10.8)
[2021-05-20] MEDS ORDERED: Sodium Chloride 0.9% 500 ML IV SCH (08:15)
[2021-05-20] MEDS: Lansoprazole 3 MG/ML ORAL SUSPENSION PER TUBE SCH (09:59)
[2021-05-20] MEDS: fentaNYL Citrate/PF 2,000 MCG in Sodium Chloride 0.9% 60 ML IV SCH ×2 (11:36→22:07)
[2021-05-20] MEDS: Dexamethasone 10 MG/ML VIAL SLOW IVP SCH (11:48)
[2021-05-20] MEDS: Magnesium 2 GM/50 ML 2 GM in Premix Bag 1 BAG IVPB SCH ×2 (11:48→12:39)
[2021-05-20] MEDS: Senokot S 8.6-50 MG TAB PO SCH ×2 (11:48→20:04)
[2021-05-20] MEDS: Carvedilol 3.125 MG TAB PER TUBE SCH ×2 (11:48→17:59)
[2021-05-20] MEDS: Polyethylene Glycol 3350 17 GM Packet PER TUBE SCH (11:49)
[2021-05-20] MEDS: NPH, Human Insulin Isophane 300 UNIT/3 ML VIAL SC SCH ×2 (11:51→21:07)
[2021-05-20] MEDS: Aspirin 325 MG TAB PER TUBE SCH (12:02)
[2021-05-20] MEDS: Enoxaparin Sodium 30 MG/0.3 ML SYRINGE SC SCH ×2 (12:03→20:04)
[2021-05-20] MEDS: Atorvastatin Calcium 40 MG TAB PO SCH (20:04)
[2021-05-21] MEDS: HumaLOG 300 UNITS/3 ML VIAL SC PRN ×4 (04:05→21:14)
[2021-05-21 04:59] LABS: ALT (SGPT) 22 U/L (8-55); AST (SGOT) 18 U/L (5-34); Albumin 2.9 g/dL (3.4-4.8); Alkaline Phosphatase 119 U/L (40-110); Anion Gap 11 mmol/L (10-20); BUN (Urea Nitrogen) 22 mg/dL (8.4-25.7); Bilirubin, Total 1.3 mg/dL (0.2-1.2); Calc. Creatinine Clearance 145 mL/min (70-130); Calcium 9.2 mg/dL (7.8-10.44); Carbon Dioxide 30 mmol/L (23-31); Chloride 97 mmol/L (98-107); Globulin 3.4 g/dL (2.4-3.5); Glucose 213 mg/dL (80-115); Magnesium 1.9 mg/dL (1.6-2.6); Potassium 4.1 mmol/L (3.5-5.1); Protein, Total 6.3 g/dL (5.8-8.1); Sodium 134 mmol/L (136-145)
[2021-05-21 05:21] LABS: Hemoglobin 12.3 g/dL (14.0-18.0); Mean Corpuscular Hemoglobin 31.5 pg (27.0-31.0); Mean Corpuscular Volume 92.7 fL (78.0-98.0); Mean Platelet Volume 10.5 fL (7.4-10.4); Platelet Count 170 thou/uL (130-400); RBC Distribution Width 12.7 % (11.5-14.5); Red Blood Cell (RBC) Count 3.92 mill/uL (4.70-6.10); White Blood Cell (WBC) Count 16.9 thou/uL (4.8-10.8)
[2021-05-21 05:23] LABS: Band 1 % (5-11); Lymphocytes 8 % (21-51); MDiff Complete? YES; Monocytes 4 % (0-10); Neutrophil 87 % (42-75)
[2021-05-21 07:23] LABS: Base Excess (BEa) 7.6 mEq/L (-2.0 to +3.0); CO2 Tension 38.8 mmHg (35.0-45.0); Calcium, Ionized (arterial) 1.21 mmol/L (1.12-1.30); Carboxyhemoglobin (COHb) 0.4 gm% (0.0-3.0); Hemoglobin (Hb) 12.8 g/dL (14.0-18.0); Potassium - ABG Lab 3.68 mmol/L (3.70-5.30); pH, Arterial 7.52 (7.35-7.45)
[2021-05-21 07:41] LABS: O2 Tension (PaO2), arterial 50.2 mmHg (> 80.0); Puncture Site LRA
[2021-05-21] MEDS ORDERED: Hydrocerin (Eucerin) Cream 120 gm Jar TOP PRN (07:59)
[2021-05-21] MEDS ORDERED: Calcium Carbonate 500 MG ChewTAB PER TUBE PRN (07:59)
[2021-05-21] MEDS ORDERED: Loperamide HCl 2 MG CAP PER TUBE PRN (07:59)
[2021-05-21] MEDS ORDERED: Ondansetron PF 4 MG/2 ML Vial IVP PRN (07:59)
[2021-05-21] MEDS ORDERED: Artificial Tear Sol 15 ML BOT EA EYE PRN (07:59)
[2021-05-21] MEDS ORDERED: GUAIFENESIN SF SOLN 200 MG/10 ML UDCUP PER TUBE PRN (07:59)
[2021-05-21] MEDS ORDERED: Loratadine 10 MG TAB PER TUBE PRN (07:59)
[2021-05-21] MEDS ORDERED: Ondansetron ODT 4 MG TAB SL PRN (07:59)
[2021-05-21] MEDS: Carvedilol 3.125 MG TAB PER TUBE SCH ×2 (08:59→17:42)
[2021-05-21] MEDS ORDERED: Amlodipine 5 MG TAB PER TUBE SCH (09:00)
[2021-05-21] MEDS: Atenolol 25 MG TAB PER TUBE SCH (09:58)
[2021-05-21] MEDS: Senokot S 8.6-50 MG TAB PO SCH ×2 (09:59→20:34)
[2021-05-21] MEDS: Allopurinol 300 MG TAB PER TUBE SCH (09:59)
[2021-05-21] MEDS: Polyethylene Glycol 3350 17 GM Packet PER TUBE SCH (09:59)
[2021-05-21] MEDS: Enoxaparin Sodium 30 MG/0.3 ML SYRINGE SC SCH ×2 (10:00→20:34)
[2021-05-21] MEDS: NPH, Human Insulin Isophane 300 UNIT/3 ML VIAL SC SCH ×2 (10:00→21:11)
[2021-05-21] MEDS: Dexamethasone 10 MG/ML VIAL SLOW IVP SCH (10:01)
[2021-05-21] MEDS: Aspirin 325 MG TAB PER TUBE SCH (10:02)
[2021-05-21] MEDS: Midazolam In 0.9 % NaCl/PF 100 ML IVPB SCH (10:03)
[2021-05-21] MEDS: fentaNYL Citrate/PF 2,000 MCG in Sodium Chloride 0.9% 60 ML IV SCH ×2 (10:54→22:49)
[2021-05-21] MEDS: Lansoprazole 3 MG/ML ORAL SUSPENSION PER TUBE SCH (11:29)
[2021-05-21] MEDS: Atorvastatin Calcium 40 MG TAB PER TUBE SCH (20:34)
[2021-05-22 04:33] LABS: ALT (SGPT) 23 U/L (8-55); AST (SGOT) 14 U/L (5-34); Alkaline Phosphatase 127 U/L (40-110); Anion Gap 10 mmol/L (10-20); BUN (Urea Nitrogen) 25 mg/dL (8.4-25.7); Calc. Creatinine Clearance 166 mL/min (70-130); Calcium 9.4 mg/dL (7.8-10.44); Carbon Dioxide 29 mmol/L (23-31); Chloride 97 mmol/L (98-107); Globulin 3.3 g/dL (2.4-3.5); Glucose 177 mg/dL (80-115); Magnesium 1.6 mg/dL (1.6-2.6); Phosphorus 3.3 mg/dL (2.3-4.7); Potassium 4.3 mmol/L (3.5-5.1); Protein, Total 6.3 g/dL (5.8-8.1); Sodium 132 mmol/L (136-145)
[2021-05-22] MEDS: HumaLOG 300 UNITS/3 ML VIAL SC PRN ×4 (06:00→21:14)
[2021-05-22 06:18] LABS: Hemoglobin 12.9 g/dL (14.0-18.0); Mean Corpuscular HGB CONC 35.4 g/dL (32.0-36.0); Mean Corpuscular Hemoglobin 32.9 pg (27.0-31.0); Mean Platelet Volume 9.1 fL (7.4-10.4); Platelet Count 238 thou/uL (130-400); RBC Distribution Width 12.6 % (11.5-14.5); Red Blood Cell (RBC) Count 3.92 mill/uL (4.70-6.10); White Blood Cell (WBC) Count 17.4 thou/uL (4.8-10.8)
[2021-05-22 06:48] LABS: Band 7 % (5-11); Lymphocytes 8 % (21-51); MDiff Complete? YES; Monocytes 5 % (0-10); Neutrophil 80 % (42-75)
[2021-05-22 07:57] LABS: Actual Bicarbonate (HCO3a) 31.2 mEq/L (22-28); Base Excess (BEa) 6.1 mEq/L (-2.0 to +3.0); CO2 Tension 46.6 mmHg (35.0-45.0); Calcium, Ionized (arterial) 1.21 mmol/L (1.12-1.30); Carboxyhemoglobin (COHb) 0.4 gm% (0.0-3.0); Hemoglobin (Hb) 12.9 g/dL (14.0-18.0); Potassium - ABG Lab 4.32 mmol/L (3.70-5.30); Puncture Site RRA; pH, Arterial 7.44 (7.35-7.45)
[2021-05-22] MEDS ORDERED: Amlodipine 10 MG TAB PER TUBE SCH (08:06)
[2021-05-22] MEDS: Atenolol 25 MG TAB PER TUBE SCH (08:19)
[2021-05-22] MEDS: Carvedilol 3.125 MG TAB PER TUBE SCH ×2 (08:19→17:16)
[2021-05-22] MEDS: Allopurinol 300 MG TAB PER TUBE SCH (08:20)
[2021-05-22] MEDS: Aspirin 325 MG TAB PER TUBE SCH (08:20)
[2021-05-22] MEDS: Enoxaparin Sodium 60 MG/0.6 ML SYRINGE SC SCH ×2 (08:44→20:56)
[2021-05-22] MEDS: Dexamethasone 10 MG/ML VIAL SLOW IVP SCH (08:44)
[2021-05-22] MEDS: NPH, Human Insulin Isophane 300 UNIT/3 ML VIAL SC SCH ×2 (09:33→21:14)
[2021-05-22] MEDS: Lansoprazole 3 MG/ML ORAL SUSPENSION PER TUBE SCH (09:44)
[2021-05-22] MEDS: Magnesium 2 GM/50 ML 2 GM in Premix Bag 1 BAG IVPB SCH ×2 (09:47→12:26)
[2021-05-22] MEDS: Polyethylene Glycol 3350 17 GM Packet PER TUBE SCH (09:48)
[2021-05-22] MEDS: Senokot S 8.6-50 MG TAB PO SCH ×2 (09:48→20:56)
[2021-05-22] MEDS: fentaNYL Citrate/PF 2,000 MCG in Sodium Chloride 0.9% 60 ML IV SCH (10:55)
[2021-05-22] MEDS ORDERED: Norepinephrine 8 MG/0.9% NS 250 ML ONE (18:41)
[2021-05-22] MEDS ORDERED: Norepinephrine 8 MG/0.9% NS 250 ML IVPB SCH (19:00)
[2021-05-22] MEDS ORDERED: Sodium Chloride 0.9% 1,000 ML IV SCH (19:00)
[2021-05-22] MEDS: Atorvastatin Calcium 40 MG TAB PER TUBE SCH (20:56)
[2021-05-23] MEDS: HumaLOG 300 UNITS/3 ML VIAL SC PRN ×4 (04:57→21:06)
[2021-05-23] MEDS: fentaNYL Citrate/PF 2,000 MCG in Sodium Chloride 0.9% 60 ML IV SCH ×2 (05:37→21:02)
[2021-05-23 05:40] LABS: ALT (SGPT) 20 U/L (8-55); AST (SGOT) 14 U/L (5-34); Alkaline Phosphatase 124 U/L (40-110); Anion Gap 10 mmol/L (10-20); BUN (Urea Nitrogen) 24 mg/dL (8.4-25.7); Calc. Creatinine Clearance 158 mL/min (70-130); Calcium 9.1 mg/dL (7.8-10.44); Carbon Dioxide 29 mmol/L (23-31); Chloride 96 mmol/L (98-107); Globulin 3.2 g/dL (2.4-3.5); Glucose 249 mg/dL (80-115); Magnesium 1.9 mg/dL (1.6-2.6); Phosphorus 2.8 mg/dL (2.3-4.7); Potassium 4.4 mmol/L (3.5-5.1); Protein, Total 6.2 g/dL (5.8-8.1); Sodium 131 mmol/L (136-145)
[2021-05-23 05:59] LABS: Hemoglobin 12.1 g/dL (14.0-18.0); Mean Corpuscular Hemoglobin 30.4 pg (27.0-31.0); Mean Corpuscular Volume 92.3 fL (78.0-98.0); Mean Platelet Volume 10.2 fL (7.4-10.4); Platelet Count 237 thou/uL (130-400); RBC Distribution Width 12.5 % (11.5-14.5); Red Blood Cell (RBC) Count 3.99 mill/uL (4.70-6.10); White Blood Cell (WBC) Count 20.8 thou/uL (4.8-10.8)
[2021-05-23 06:03] LABS: Band 1 % (5-11); Lymphocytes 4 % (21-51); MDiff Complete? YES; Monocytes 4 % (0-10); Neutrophil 91 % (42-75)
[2021-05-23] MEDS: Senokot S 8.6-50 MG TAB PO SCH ×2 (08:47→20:58)
[2021-05-23] MEDS: Allopurinol 300 MG TAB PER TUBE SCH (08:47)
[2021-05-23] MEDS: Enoxaparin Sodium 60 MG/0.6 ML SYRINGE SC SCH ×2 (08:48→20:58)
[2021-05-23] MEDS: Polyethylene Glycol 3350 17 GM Packet PER TUBE SCH (08:48)
[2021-05-23] MEDS: Dexamethasone 10 MG/ML VIAL SLOW IVP SCH (08:48)
[2021-05-23] MEDS: NPH, Human Insulin Isophane 300 UNIT/3 ML VIAL SC SCH ×2 (08:49→21:06)
[2021-05-23] MEDS: Aspirin 325 MG TAB PER TUBE SCH (09:15)
[2021-05-23] MEDS: Lansoprazole 3 MG/ML ORAL SUSPENSION PER TUBE SCH (09:15)
[2021-05-23] MEDS: Midazolam In 0.9 % NaCl/PF 100 ML IVPB SCH (13:16)
[2021-05-23] MEDS: Atorvastatin Calcium 40 MG TAB PER TUBE SCH (20:58)
[2021-05-24] MEDS: HumaLOG 300 UNITS/3 ML VIAL SC PRN ×4 (04:19→21:38)
[2021-05-24 04:55] LABS: ALT (SGPT) 18 U/L (8-55); AST (SGOT) 11 U/L (5-34); Albumin 3.1 g/dL (3.4-4.8); Alkaline Phosphatase 117 U/L (40-110); Anion Gap 11 mmol/L (10-20); BUN (Urea Nitrogen) 24 mg/dL (8.4-25.7); Bilirubin, Total 0.9 mg/dL (0.2-1.2); Calc. Creatinine Clearance 164 mL/min (70-130); Carbon Dioxide 29 mmol/L (23-31); Chloride 97 mmol/L (98-107); Globulin 2.9 g/dL (2.4-3.5); Glucose 192 mg/dL (80-115); Potassium 4.3 mmol/L (3.5-5.1); Sodium 133 mmol/L (136-145)
[2021-05-24 05:31] LABS: Band 6 % (5-11); Hemoglobin 12.3 g/dL (14.0-18.0); Lymphocytes 7 % (21-51); MDiff Complete? YES; Mean Corpuscular HGB CONC 33.3 g/dL (32.0-36.0); Mean Corpuscular Hemoglobin 30.7 pg (27.0-31.0); Mean Corpuscular Volume 92.3 fL (78.0-98.0); Mean Platelet Volume 8.3 fL (7.4-10.4); Monocytes 4 % (0-10); Neutrophil 83 % (42-75); Platelet Count 294 thou/uL (130-400); RBC Distribution Width 12.5 % (11.5-14.5); Red Blood Cell (RBC) Count 4.01 mill/uL (4.70-6.10); White Blood Cell (WBC) Count 20.1 thou/uL (4.8-10.8)
[2021-05-24] MEDS: Carvedilol 3.125 MG TAB PER TUBE SCH ×2 (08:00→17:20)
[2021-05-24 08:01] LABS: CO2 Tension 46.6 mmHg (35.0-45.0); Calcium, Ionized (arterial) 1.19 mmol/L (1.12-1.30); Carboxyhemoglobin (COHb) 0.8 gm% (0.0-3.0); Hemoglobin (Hb) 12.9 g/dL (14.0-18.0); Potassium - ABG Lab 4.11 mmol/L (3.70-5.30); pH, Arterial 7.45 (7.35-7.45)
[2021-05-24 08:02] LABS: O2 Tension (PaO2), arterial 59.2 mmHg (> 80.0); Puncture Site LRA
[2021-05-24] MEDS: Dexamethasone 10 MG/ML VIAL SLOW IVP SCH (10:29)
[2021-05-24] MEDS: Aspirin 325 MG TAB PER TUBE SCH (10:29)
[2021-05-24] MEDS: Enoxaparin Sodium 60 MG/0.6 ML SYRINGE SC SCH ×2 (10:29→21:33)
[2021-05-24] MEDS: Allopurinol 300 MG TAB PER TUBE SCH (10:29)
[2021-05-24] MEDS: Polyethylene Glycol 3350 17 GM Packet PER TUBE SCH (10:29)
[2021-05-24] MEDS: Senokot S 8.6-50 MG TAB PO SCH ×2 (10:29→21:34)
[2021-05-24] MEDS ORDERED: Carvedilol 3.125 MG TAB PER TUBE SCH (10:30)
[2021-05-24] MEDS: NPH, Human Insulin Isophane 300 UNIT/3 ML VIAL SC SCH ×2 (10:30→21:40)
[2021-05-24] MEDS: Lansoprazole 3 MG/ML ORAL SUSPENSION PER TUBE SCH (10:30)
[2021-05-24] MEDS ORDERED: Fentanyl BOLUS 250 ML IVPB PRN (11:05)
[2021-05-24] MEDS: fentaNYL Citrate/PF 2,000 MCG in Sodium Chloride 0.9% 60 ML IV SCH (11:20)
[2021-05-24] MEDS: Atorvastatin Calcium 40 MG TAB PER TUBE SCH (21:33)
[2021-05-25] MEDS: HumaLOG 300 UNITS/3 ML VIAL SC PRN ×4 (04:57→20:02)
[2021-05-25 06:00] LABS: Hemoglobin 11.6 g/dL (14.0-18.0); Mean Corpuscular HGB CONC 32.9 g/dL (32.0-36.0); Mean Corpuscular Hemoglobin 30.5 pg (27.0-31.0); Mean Corpuscular Volume 92.7 fL (78.0-98.0); Mean Platelet Volume 9.3 fL (7.4-10.4); Platelet Count 259 thou/uL (130-400); RBC Distribution Width 12.5 % (11.5-14.5); White Blood Cell (WBC) Count 17.1 thou/uL (4.8-10.8)
[2021-05-25 06:30] LABS: Band 2 % (5-11); Lymphocytes 3 % (21-51); MDiff Complete? YES; Monocytes 3 % (0-10); Neutrophil 92 % (42-75)
[2021-05-25 06:32] LABS: ALT (SGPT) 20 U/L (8-55); AST (SGOT) 14 U/L (5-34); Albumin 2.9 g/dL (3.4-4.8); Alkaline Phosphatase 113 U/L (40-110); Anion Gap 10 mmol/L (10-20); BUN (Urea Nitrogen) 30 mg/dL (8.4-25.7); Bilirubin, Total 0.9 mg/dL (0.2-1.2); Calc. Creatinine Clearance 152 mL/min (70-130); Carbon Dioxide 31 mmol/L (23-31); Chloride 96 mmol/L (98-107); Globulin 2.9 g/dL (2.4-3.5); Glucose 227 mg/dL (80-115); Potassium 4.3 mmol/L (3.5-5.1); Protein, Total 5.8 g/dL (5.8-8.1); Sodium 133 mmol/L (136-145)
[2021-05-25] MEDS: fentaNYL Citrate/PF 2,000 MCG in Sodium Chloride 0.9% 60 ML IV SCH (07:14)
[2021-05-25 07:27] LABS: Actual Bicarbonate (HCO3a) 33.2 mEq/L (22-28); Base Excess (BEa) 8.5 mEq/L (-2.0 to +3.0); CO2 Tension 46.5 mmHg (35.0-45.0); Carboxyhemoglobin (COHb) 0.2 gm% (0.0-3.0); Hemoglobin (Hb) 11.5 g/dL (14.0-18.0); Potassium - ABG Lab 4.11 mmol/L (3.70-5.30); pH, Arterial 7.47 (7.35-7.45)
[2021-05-25 08:08] LABS: Puncture Site LRA
[2021-05-25 08:09] LABS: ALV-art Gradient 166.075 mmHg (0-20)
[2021-05-25] MEDS: Dexamethasone 10 MG/ML VIAL SLOW IVP SCH (09:05)
[2021-05-25] MEDS: Senokot S 8.6-50 MG TAB PO SCH ×2 (09:05→20:08)
[2021-05-25] MEDS: Allopurinol 300 MG TAB PER TUBE SCH (09:05)
[2021-05-25] MEDS: Polyethylene Glycol 3350 17 GM Packet PER TUBE SCH (09:05)
[2021-05-25] MEDS: Carvedilol 3.125 MG TAB PER TUBE SCH ×2 (09:05→16:29)
[2021-05-25] MEDS: Enoxaparin Sodium 60 MG/0.6 ML SYRINGE SC SCH ×2 (09:05→20:07)
[2021-05-25] MEDS: Aspirin 325 MG TAB PER TUBE SCH (09:05)
[2021-05-25] MEDS: Lansoprazole 3 MG/ML ORAL SUSPENSION PER TUBE SCH (09:06)
[2021-05-25] MEDS: NPH, Human Insulin Isophane 300 UNIT/3 ML VIAL SC SCH ×2 (09:07→20:02)
[2021-05-25] MEDS: Midazolam In 0.9 % NaCl/PF 100 ML IVPB SCH (09:28)
[2021-05-25] MEDS ORDERED: Dexmedetomidine 400 MCG, Admixture Fee 1 EACH in Sodium Chloride 0.9% 96 ML IVPB SCH (10:45)
[2021-05-25] MEDS: Atorvastatin Calcium 40 MG TAB PER TUBE SCH (20:08)
[2021-05-25] MEDS: fentaNYL Citrate-0.9 % NaCl/PF 100 ML IVPB SCH (23:40)
[2021-05-26] MEDS: Morphine 4 MG/ML VIAL SLOW IVP PRN ×2 (02:20→08:38)
[2021-05-26 04:06] LABS: Band 1 % (5-11); Hemoglobin 11.6 g/dL (14.0-18.0); Lymphocytes 10 % (21-51); MDiff Complete? YES; Mean Corpuscular HGB CONC 32.3 g/dL (32.0-36.0); Mean Corpuscular Hemoglobin 29.8 pg (27.0-31.0); Mean Corpuscular Volume 92.3 fL (78.0-98.0); Mean Platelet Volume 8.3 fL (7.4-10.4); Metamyelocyte 1 % (0-0); Monocytes 5 % (0-10); Neutrophil 83 % (42-75); Platelet Count 333 thou/uL (130-400); Platelet Morphology Comment Appears Adequate; RBC Distribution Width 12.7 % (11.5-14.5); Red Blood Cell (RBC) Count 3.88 mill/uL (4.70-6.10); White Blood Cell (WBC) Count 19.6 thou/uL (4.8-10.8)
[2021-05-26] MEDS: Oxymetazoline HCl 0.05% (30 ML BOT) NS PRN ×2 (04:18→10:49)
[2021-05-26 04:22] LABS: ALT (SGPT) 22 U/L (8-55); AST (SGOT) 15 U/L (5-34); Alkaline Phosphatase 107 U/L (40-110); Anion Gap 12 mmol/L (10-20); BUN (Urea Nitrogen) 28 mg/dL (8.4-25.7); Bilirubin, Total 0.9 mg/dL (0.2-1.2); Calc. Creatinine Clearance 162 mL/min (70-130); Calcium 9.3 mg/dL (7.8-10.44); Carbon Dioxide 30 mmol/L (23-31); Chloride 97 mmol/L (98-107); Globulin 2.9 g/dL (2.4-3.5); Glucose 212 mg/dL (80-115); Potassium 4.2 mmol/L (3.5-5.1); Protein, Total 5.9 g/dL (5.8-8.1); Sodium 135 mmol/L (136-145)
[2021-05-26] MEDS: HumaLOG 300 UNITS/3 ML VIAL SC PRN ×4 (05:09→21:42)
[2021-05-26] MEDS: Dexmedetomidine 1,000 MCG in Sodium Chloride 0.9% 250 ML 240 ML IVPB SCH ×2 (08:03→17:44)
[2021-05-26] MEDS: Enoxaparin Sodium 60 MG/0.6 ML SYRINGE SC SCH (08:03)
[2021-05-26] MEDS: Allopurinol 300 MG TAB PER TUBE SCH (08:04)
[2021-05-26] MEDS: Senokot S 8.6-50 MG TAB PO SCH ×2 (08:04→21:39)
[2021-05-26] MEDS: Carvedilol 3.125 MG TAB PER TUBE SCH ×2 (08:04→17:29)
[2021-05-26] MEDS: Aspirin 325 MG TAB PER TUBE SCH ×2 (08:04→09:00)
[2021-05-26] MEDS: Dexamethasone 4 mg/ml Vial SLOW IVP SCH (08:04)
[2021-05-26] MEDS: Polyethylene Glycol 3350 17 GM Packet PER TUBE SCH (08:10)
[2021-05-26] MEDS: NPH, Human Insulin Isophane 300 UNIT/3 ML VIAL SC SCH ×2 (08:16→21:40)
[2021-05-26] MEDS ORDERED: Lorazepam 2 MG/ML VIAL SLOW IVP PRN (09:54)
[2021-05-26] MEDS: Lansoprazole 3 MG/ML ORAL SUSPENSION PER TUBE SCH (10:31)
[2021-05-26] MEDS: fentaNYL Citrate-0.9 % NaCl/PF 100 ML IVPB SCH ×2 (10:53→21:45)
[2021-05-26] MEDS ORDERED: Midazolam HCl 2 mg/2 ml Vial ONE (14:40)
[2021-05-26] MEDS ORDERED: Midazolam HCl 5 mg/5 ml Vial SLOW IVP SCH (15:00)
[2021-05-26] MEDS ORDERED: Ventilator Sedation Protocol 1 EACH FS SCH (18:45)
[2021-05-26] MEDS ORDERED: DISCONTINUE PREVIOUS NARCOTIC PAIN MEDICATIONS AND BENZODIAZEPINES FS SCH (19:15)
[2021-05-26] MEDS ORDERED: Propofol BOLUS 1,000 MG/100 ML VIAL IV PRN (19:15)
[2021-05-26] MEDS ORDERED: Propofol 1,000 MG/100 ML VIAL IV PRN (19:15)
[2021-05-26] MEDS: Atorvastatin Calcium 40 MG TAB PER TUBE SCH (21:39)
[2021-05-26] MEDS: Lorazepam 2 MG/ML VIAL SLOW IVP PRN (23:25)
[2021-05-27] MEDS: Lorazepam 2 MG/ML VIAL SLOW IVP PRN ×2 (03:17→13:05)
[2021-05-27] MEDS: HumaLOG 300 UNITS/3 ML VIAL SC PRN ×3 (04:18→16:54)
[2021-05-27 05:38] LABS: Hemoglobin 11.1 g/dL (14.0-18.0); Hypochromia SLIGHT = 6-15 cells (100X) (0-5/hpf); Lymphocytes 8 % (21-51); MDiff Complete? YES; Mean Corpuscular HGB CONC 32.5 g/dL (32.0-36.0); Mean Corpuscular Hemoglobin 30.1 pg (27.0-31.0); Mean Corpuscular Volume 92.8 fL (78.0-98.0); Mean Platelet Volume 8.4 fL (7.4-10.4); Monocytes 7 % (0-10); Neutrophil 85 % (42-75); Platelet Count 319 thou/uL (130-400); Platelet Morphology Comment Appears Adequate; RBC Distribution Width 12.7 % (11.5-14.5); Red Blood Cell (RBC) Count 3.69 mill/uL (4.70-6.10); White Blood Cell (WBC) Count 16.2 thou/uL (4.8-10.8)
[2021-05-27 05:48] LABS: ALT (SGPT) 19 U/L (8-55); AST (SGOT) 13 U/L (5-34); Albumin 2.9 g/dL (3.4-4.8); Alkaline Phosphatase 95 U/L (40-110); Anion Gap 9 mmol/L (10-20); BUN (Urea Nitrogen) 26 mg/dL (8.4-25.7); Bilirubin, Total 0.7 mg/dL (0.2-1.2); Calc. Creatinine Clearance 0 mL/min (70-130); Calcium 9.2 mg/dL (7.8-10.44); Carbon Dioxide 32 mmol/L (23-31); Chloride 99 mmol/L (98-107); Globulin 2.7 g/dL (2.4-3.5); Glucose 187 mg/dL (80-115); Potassium 4.1 mmol/L (3.5-5.1); Protein, Total 5.6 g/dL (5.8-8.1); Sodium 136 mmol/L (136-145)
[2021-05-27] MEDS: Dexmedetomidine 1,000 MCG in Sodium Chloride 0.9% 250 ML 240 ML IVPB SCH ×2 (06:38→17:15)
[2021-05-27] MEDS: Dexamethasone 4 mg/ml Vial SLOW IVP SCH ×3 (09:00→09:40)
[2021-05-27] MEDS: Senokot S 8.6-50 MG TAB PO SCH ×2 (09:25→21:27)
[2021-05-27] MEDS: Allopurinol 300 MG TAB PER TUBE SCH (09:26)
[2021-05-27] MEDS: Lansoprazole 3 MG/ML ORAL SUSPENSION PER TUBE SCH (09:26)
[2021-05-27] MEDS: Carvedilol 3.125 MG TAB PER TUBE SCH ×2 (09:26→16:54)
[2021-05-27] MEDS: Polyethylene Glycol 3350 17 GM Packet PER TUBE SCH (09:26)
[2021-05-27] MEDS: Enoxaparin Sodium 60 MG/0.6 ML SYRINGE SC SCH ×2 (09:27→21:28)
[2021-05-27] MEDS: NPH, Human Insulin Isophane 300 UNIT/3 ML VIAL SC SCH ×2 (10:30→21:32)
[2021-05-27] MEDS: Aspirin 325 MG TAB PER TUBE SCH (11:04)
[2021-05-27] MEDS: fentaNYL Citrate-0.9 % NaCl/PF 100 ML IVPB SCH (11:44)
[2021-05-27] MEDS: Acetaminophen 500 MG TAB PER TUBE PRN (21:27)
[2021-05-27] MEDS: Atorvastatin Calcium 40 MG TAB PER TUBE SCH (21:27)
[2021-05-28] MEDS: Dexmedetomidine 1,000 MCG in Sodium Chloride 0.9% 250 ML 240 ML IVPB SCH ×3 (01:34→20:03)
[2021-05-28] MEDS ORDERED: Norepinephrine 8 MG/0.9% NS 250 ML ONE (02:16)
[2021-05-28] MEDS ORDERED: Norepinephrine 8 MG/0.9% NS 250 ML IVPB SCH (02:30)
[2021-05-28 02:53] LABS: Eosinophils 2 % (0-10); Hemoglobin 9.6 g/dL (14.0-18.0); Lymphocytes 10 % (21-51); MDiff Complete? YES; Mean Corpuscular HGB CONC 33.4 g/dL (32.0-36.0); Mean Corpuscular Hemoglobin 31.1 pg (27.0-31.0); Mean Corpuscular Volume 93.3 fL (78.0-98.0); Mean Platelet Volume 7.5 fL (7.4-10.4); Monocytes 3 % (0-10); Neutrophil 85 % (42-75); Platelet Count 272 thou/uL (130-400); Platelet Morphology Comment Appears Adequate; RBC Distribution Width 12.6 % (11.5-14.5); Red Blood Cell (RBC) Count 3.08 mill/uL (4.70-6.10); White Blood Cell (WBC) Count 10.3 thou/uL (4.8-10.8)
[2021-05-28] MEDS ORDERED: Sodium Chloride 0.9% 500 ML IV SCH (03:00)
[2021-05-28 03:02] LABS: ALT (SGPT) 15 U/L (8-55); AST (SGOT) 11 U/L (5-34); Albumin 2.5 g/dL (3.4-4.8); Alkaline Phosphatase 76 U/L (40-110); Anion Gap 8 mmol/L (10-20); BUN (Urea Nitrogen) 25 mg/dL (8.4-25.7); Bilirubin, Total 0.6 mg/dL (0.2-1.2); Calc. Creatinine Clearance 0 mL/min (70-130); Calcium 8.4 mg/dL (7.8-10.44); Carbon Dioxide 32 mmol/L (23-31); Chloride 101 mmol/L (98-107); Globulin 2.1 g/dL (2.4-3.5); Glucose 128 mg/dL (80-115); Potassium 4.3 mmol/L (3.5-5.1); Protein, Total 4.6 g/dL (5.8-8.1); Sodium 137 mmol/L (136-145)
[2021-05-28] MEDS: fentaNYL Citrate-0.9 % NaCl/PF 100 ML IVPB SCH (05:21)
[2021-05-28] MEDS: Carvedilol 3.125 MG TAB PER TUBE SCH ×2 (09:23→17:59)
[2021-05-28] MEDS: Allopurinol 300 MG TAB PER TUBE SCH (09:24)
[2021-05-28] MEDS: Dexamethasone 4 mg/ml Vial SLOW IVP SCH ×2 (09:25→11:34)
[2021-05-28] MEDS: NPH, Human Insulin Isophane 300 UNIT/3 ML VIAL SC SCH ×2 (09:25→20:06)
[2021-05-28] MEDS: Aspirin 325 MG TAB PER TUBE SCH (09:25)
[2021-05-28] MEDS: Enoxaparin Sodium 60 MG/0.6 ML SYRINGE SC SCH (09:25)
[2021-05-28] MEDS: Polyethylene Glycol 3350 17 GM Packet PER TUBE SCH (09:27)
[2021-05-28] MEDS: Senokot S 8.6-50 MG TAB PO SCH ×2 (09:28→20:05)
[2021-05-28] MEDS: Lansoprazole 3 MG/ML ORAL SUSPENSION PER TUBE SCH (09:53)
[2021-05-28] MEDS: HumaLOG 300 UNITS/3 ML VIAL SC PRN ×2 (10:17→17:58)
[2021-05-28] MEDS: Atorvastatin Calcium 40 MG TAB PER TUBE SCH (20:05)
[2021-05-29] MEDS: fentaNYL Citrate-0.9 % NaCl/PF 100 ML IVPB SCH ×2 (01:02→20:56)
[2021-05-29] MEDS: Dexmedetomidine 1,000 MCG in Sodium Chloride 0.9% 250 ML 240 ML IVPB SCH ×3 (03:58→21:11)
[2021-05-29] MEDS: Enoxaparin Sodium 40 MG/0.4 ML SYRINGE SC SCH (08:27)
[2021-05-29] MEDS: Allopurinol 300 MG TAB PER TUBE SCH (08:28)
[2021-05-29] MEDS: fentaNYL 50 mcg/hour Patch TD SCH (08:29)
[2021-05-29] MEDS: Polyethylene Glycol 3350 17 GM Packet PER TUBE SCH (08:29)
[2021-05-29] MEDS: Senokot S 8.6-50 MG TAB PO SCH ×2 (08:29→20:11)
[2021-05-29] MEDS: Dexamethasone 4 mg/ml Vial SLOW IVP SCH (08:29)
[2021-05-29] MEDS: Carvedilol 3.125 MG TAB PER TUBE SCH ×2 (08:29→18:20)
[2021-05-29] MEDS: Aspirin 325 MG TAB PER TUBE SCH (08:29)
[2021-05-29] MEDS: NPH, Human Insulin Isophane 300 UNIT/3 ML VIAL SC SCH ×2 (08:56→20:12)
[2021-05-29 09:06] LABS: Hemoglobin 10.8 g/dL (14.0-18.0); Mean Corpuscular HGB CONC 34.1 g/dL (32.0-36.0); Mean Corpuscular Hemoglobin 31.8 pg (27.0-31.0); Mean Corpuscular Volume 93.2 fL (78.0-98.0); Mean Platelet Volume 7.9 fL (7.4-10.4); Platelet Count 300 thou/uL (130-400); RBC Distribution Width 12.9 % (11.5-14.5); Red Blood Cell (RBC) Count 3.39 mill/uL (4.70-6.10); White Blood Cell (WBC) Count 12.2 thou/uL (4.8-10.8)
[2021-05-29 09:22] LABS: ALT (SGPT) 17 U/L (8-55); AST (SGOT) 15 U/L (5-34); Albumin 2.8 g/dL (3.4-4.8); Alkaline Phosphatase 84 U/L (40-110); Anion Gap 8 mmol/L (10-20); BUN (Urea Nitrogen) 21 mg/dL (8.4-25.7); Bilirubin, Total 0.6 mg/dL (0.2-1.2); Calc. Creatinine Clearance 169 mL/min (70-130); Carbon Dioxide 32 mmol/L (23-31); Chloride 101 mmol/L (98-107); Globulin 2.6 g/dL (2.4-3.5); Glucose 207 mg/dL (80-115); Protein, Total 5.4 g/dL (5.8-8.1); Sodium 137 mmol/L (136-145)
[2021-05-29 09:36] LABS: Band 3 % (5-11); Burr Cells SLIGHT = 2-5 cells (100X) (0-1/hpf); Lymphocytes 4 % (21-51); MDiff Complete? YES; Monocytes 6 % (0-10); Neutrophil 86 % (42-75); Platelet Morphology Comment Appears Adequate; Polychromasia SLIGHT = 2-3 cells (100X) (0-2/hpf)
[2021-05-29] MEDS: Lansoprazole 3 MG/ML ORAL SUSPENSION PER TUBE SCH (09:51)
[2021-05-29] MEDS: HumaLOG 300 UNITS/3 ML VIAL SC PRN (12:30)
[2021-05-29] MEDS: hydrALAZINE 20 MG/ML VIAL SLOW IVP PRN (20:07)
[2021-05-29] MEDS: Atorvastatin Calcium 40 MG TAB PER TUBE SCH (20:12)
[2021-05-29] MEDS: Lorazepam 2 MG/ML VIAL SLOW IVP PRN (20:21)
[2021-05-30 04:40] LABS: Band 3 % (5-11); Eosinophils 1 % (0-10); Hemoglobin 11.5 g/dL (14.0-18.0); Lymphocytes 3 % (21-51); MDiff Complete? YES; Mean Corpuscular HGB CONC 32.5 g/dL (32.0-36.0); Mean Corpuscular Hemoglobin 30.2 pg (27.0-31.0); Mean Corpuscular Volume 92.8 fL (78.0-98.0); Metamyelocyte 1 % (0-0); Monocytes 3 % (0-10); Neutrophil 88 % (42-75); Platelet Count 337 thou/uL (130-400); Platelet Morphology Comment Appears Adequate; RBC Distribution Width 13.2 % (11.5-14.5); Red Blood Cell (RBC) Count 3.81 mill/uL (4.70-6.10)
[2021-05-30 04:53] LABS: ALT (SGPT) 17 U/L (8-55); AST (SGOT) 12 U/L (5-34); Albumin 3.1 g/dL (3.4-4.8); Alkaline Phosphatase 94 U/L (40-110); Anion Gap 12 mmol/L (10-20); BUN (Urea Nitrogen) 22 mg/dL (8.4-25.7); Bilirubin, Total 0.6 mg/dL (0.2-1.2); Calc. Creatinine Clearance 172 mL/min (70-130); Carbon Dioxide 28 mmol/L (23-31); Chloride 99 mmol/L (98-107); Globulin 2.6 g/dL (2.4-3.5); Glucose 221 mg/dL (80-115); Potassium 3.8 mmol/L (3.5-5.1); Protein, Total 5.7 g/dL (5.8-8.1); Sodium 135 mmol/L (136-145)
[2021-05-30] MEDS: Dexmedetomidine 1,000 MCG in Sodium Chloride 0.9% 250 ML 240 ML IVPB SCH (05:41)
[2021-05-30] MEDS: HumaLOG 300 UNITS/3 ML VIAL SC PRN ×3 (05:44→17:07)
[2021-05-30] MEDS: Dexamethasone 4 mg/ml Vial SLOW IVP SCH (10:52)
[2021-05-30] MEDS: Allopurinol 300 MG TAB PER TUBE SCH (10:53)
[2021-05-30] MEDS: Senokot S 8.6-50 MG TAB PO SCH ×2 (10:53→20:20)
[2021-05-30] MEDS: Carvedilol 3.125 MG TAB PER TUBE SCH ×2 (10:53→17:04)
[2021-05-30] MEDS: Enoxaparin Sodium 40 MG/0.4 ML SYRINGE SC SCH (10:54)
[2021-05-30] MEDS: Lansoprazole 3 MG/ML ORAL SUSPENSION PER TUBE SCH (10:54)
[2021-05-30] MEDS: Polyethylene Glycol 3350 17 GM Packet PER TUBE SCH (10:57)
[2021-05-30] MEDS: NPH, Human Insulin Isophane 300 UNIT/3 ML VIAL SC SCH ×2 (10:59→20:19)
[2021-05-30] MEDS: Aspirin 325 MG TAB PER TUBE SCH (11:12)
[2021-05-30] MEDS: hydrALAZINE 20 MG/ML VIAL SLOW IVP PRN (12:06)
[2021-05-30] MEDS: Atorvastatin Calcium 40 MG TAB PER TUBE SCH (20:18)
[2021-05-30] MEDS: fentaNYL Citrate-0.9 % NaCl/PF 100 ML IVPB SCH (23:15)
[2021-05-31] MEDS: HumaLOG 300 UNITS/3 ML VIAL SC PRN ×2 (06:54→09:55)
[2021-05-31] MEDS: Allopurinol 300 MG TAB PER TUBE SCH (09:35)
[2021-05-31] MEDS: Dexamethasone 4 mg/ml Vial SLOW IVP SCH (09:35)
[2021-05-31] MEDS: Polyethylene Glycol 3350 17 GM Packet PER TUBE SCH (09:35)
[2021-05-31] MEDS: Carvedilol 3.125 MG TAB PER TUBE SCH ×2 (09:36→18:03)
[2021-05-31] MEDS: Senokot S 8.6-50 MG TAB PO SCH ×2 (09:36→20:27)
[2021-05-31] MEDS: Aspirin 325 MG TAB PER TUBE SCH (09:39)
[2021-05-31] MEDS: Lansoprazole 3 MG/ML ORAL SUSPENSION PER TUBE SCH (09:39)
[2021-05-31] MEDS: Enoxaparin Sodium 40 MG/0.4 ML SYRINGE SC SCH (09:43)
[2021-05-31] MEDS: NPH, Human Insulin Isophane 300 UNIT/3 ML VIAL SC SCH ×2 (09:48→20:28)
[2021-05-31 10:38] LABS: ALT (SGPT) 16 U/L (8-55); AST (SGOT) 14 U/L (5-34); Albumin 3.1 g/dL (3.4-4.8); Alkaline Phosphatase 98 U/L (40-110); Anion Gap 12 mmol/L (10-20); BUN (Urea Nitrogen) 31 mg/dL (8.4-25.7); Bilirubin, Total 0.7 mg/dL (0.2-1.2); Calc. Creatinine Clearance 167 mL/min (70-130); Calcium 9.3 mg/dL (7.8-10.44); Carbon Dioxide 29 mmol/L (23-31); Chloride 100 mmol/L (98-107); Globulin 2.7 g/dL (2.4-3.5); Glucose 199 mg/dL (80-115); Potassium 3.3 mmol/L (3.5-5.1); Protein, Total 5.8 g/dL (5.8-8.1); Sodium 138 mmol/L (136-145)
[2021-05-31 11:21] LABS: Band 5 % (5-11); Hemoglobin 11.4 g/dL (14.0-18.0); Lymphocytes 4 % (21-51); MDiff Complete? YES; Mean Corpuscular HGB CONC 33.5 g/dL (32.0-36.0); Mean Corpuscular Volume 92.4 fL (78.0-98.0); Mean Platelet Volume 8.2 fL (7.4-10.4); Monocytes 1 % (0-10); Neutrophil 89 % (42-75); Platelet Count 349 thou/uL (130-400); Platelet Morphology Comment Appears Adequate; RBC Distribution Width 13.4 % (11.5-14.5); RBC Morphology Normal; Reactive Lymphocytes 1 % (0-10); Red Blood Cell (RBC) Count 3.68 mill/uL (4.70-6.10); White Blood Cell (WBC) Count 19.4 thou/uL (4.8-10.8)
[2021-05-31] MEDS: Atorvastatin Calcium 40 MG TAB PER TUBE SCH (20:27)
[2021-06-01 04:52] LABS: Band 11 % (5-11); Eosinophils 1 % (0-10); Hemoglobin 10.5 g/dL (14.0-18.0); MDiff Complete? YES; Mean Corpuscular HGB CONC 32.9 g/dL (32.0-36.0); Mean Corpuscular Hemoglobin 30.6 pg (27.0-31.0); Mean Corpuscular Volume 92.9 fL (78.0-98.0); Mean Platelet Volume 7.7 fL (7.4-10.4); Monocytes 3 % (0-10); Neutrophil 85 % (42-75); Platelet Count 336 thou/uL (130-400); Platelet Morphology Comment Appears Adequate; RBC Distribution Width 13.4 % (11.5-14.5); Red Blood Cell (RBC) Count 3.42 mill/uL (4.70-6.10); White Blood Cell (WBC) Count 17.9 thou/uL (4.8-10.8)
[2021-06-01 04:59] LABS: ALT (SGPT) 13 U/L (8-55); AST (SGOT) 11 U/L (5-34); Albumin 3.1 g/dL (3.4-4.8); Alkaline Phosphatase 90 U/L (40-110); Anion Gap 8 mmol/L (10-20); BUN (Urea Nitrogen) 33 mg/dL (8.4-25.7); Bilirubin, Total 0.7 mg/dL (0.2-1.2); Calc. Creatinine Clearance 173 mL/min (70-130); Carbon Dioxide 33 mmol/L (23-31); Chloride 101 mmol/L (98-107); Globulin 2.3 g/dL (2.4-3.5); Glucose 138 mg/dL (80-115); Potassium 3.3 mmol/L (3.5-5.1); Protein, Total 5.4 g/dL (5.8-8.1); Sodium 139 mmol/L (136-145)
[2021-06-01] MEDS: fentaNYL 50 mcg/hour Patch TD SCH (08:33)
[2021-06-01] MEDS: Carvedilol 3.125 MG TAB PER TUBE SCH ×2 (08:34→17:15)
[2021-06-01] MEDS: Allopurinol 300 MG TAB PER TUBE SCH (08:34)
[2021-06-01] MEDS: Aspirin 325 MG TAB PER TUBE SCH (08:34)
[2021-06-01] MEDS: Dexamethasone 4 mg/ml Vial SLOW IVP SCH (08:35)
[2021-06-01] MEDS: Enoxaparin Sodium 40 MG/0.4 ML SYRINGE SC SCH (08:35)
[2021-06-01] MEDS: Polyethylene Glycol 3350 17 GM Packet PER TUBE SCH (08:35)
[2021-06-01] MEDS: NPH, Human Insulin Isophane 300 UNIT/3 ML VIAL SC SCH ×2 (08:36→20:13)
[2021-06-01] MEDS: Senokot S 8.6-50 MG TAB PO SCH ×2 (08:37→20:12)
[2021-06-01] MEDS: Lansoprazole 3 MG/ML ORAL SUSPENSION PER TUBE SCH (08:37)
[2021-06-01] MEDS: HumaLOG 300 UNITS/3 ML VIAL SC PRN (10:22)
[2021-06-01] MEDS: Atorvastatin Calcium 40 MG TAB PER TUBE SCH (20:12)
[2021-06-01] MEDS: Morphine 4 MG/ML VIAL SLOW IVP PRN (20:13)
[2021-06-02 05:40] LABS: ALT (SGPT) 14 U/L (8-55); AST (SGOT) 12 U/L (5-34); Alkaline Phosphatase 86 U/L (40-110); Anion Gap 10 mmol/L (10-20); BUN (Urea Nitrogen) 37 mg/dL (8.4-25.7); Bilirubin, Total 0.6 mg/dL (0.2-1.2); Calc. Creatinine Clearance 173 mL/min (70-130); Calcium 9.1 mg/dL (7.8-10.44); Carbon Dioxide 33 mmol/L (23-31); Chloride 102 mmol/L (98-107); Globulin 2.5 g/dL (2.4-3.5); Glucose 123 mg/dL (80-115); Potassium 3.7 mmol/L (3.5-5.1); Protein, Total 5.5 g/dL (5.8-8.1); Sodium 141 mmol/L (136-145)
[2021-06-02] MEDS: Lorazepam 2 MG/ML VIAL SLOW IVP PRN (06:09)
[2021-06-02 06:55] LABS: Hemoglobin 10.1 g/dL (14.0-18.0); Mean Corpuscular HGB CONC 31.4 g/dL (32.0-36.0); Mean Corpuscular Hemoglobin 30.3 pg (27.0-31.0); Mean Corpuscular Volume 96.4 fL (78.0-98.0); Mean Platelet Volume 7.9 fL (7.4-10.4); Platelet Count 314 thou/uL (130-400); RBC Distribution Width 13.3 % (11.5-14.5); Red Blood Cell (RBC) Count 3.32 mill/uL (4.70-6.10); White Blood Cell (WBC) Count 20.6 thou/uL (4.8-10.8)
[2021-06-02 08:03] LABS: Band 13 % (5-11); Lymphocytes 7 % (21-51); MDiff Complete? YES; Monocytes 7 % (0-10); Neutrophil 73 % (42-75); RBC Morphology Normal
[2021-06-02] MEDS: Dexamethasone 4 mg/ml Vial SLOW IVP SCH (08:28)
[2021-06-02] MEDS: Carvedilol 3.125 MG TAB PER TUBE SCH ×2 (08:28→16:42)
[2021-06-02] MEDS: Allopurinol 300 MG TAB PER TUBE SCH (08:29)
[2021-06-02] MEDS: Lansoprazole 3 MG/ML ORAL SUSPENSION PER TUBE SCH (08:29)
[2021-06-02] MEDS: Enoxaparin Sodium 40 MG/0.4 ML SYRINGE SC SCH (08:29)
[2021-06-02] MEDS: Senokot S 8.6-50 MG TAB PO SCH ×2 (08:29→21:15)
[2021-06-02] MEDS: Aspirin 325 MG TAB PER TUBE SCH (08:31)
[2021-06-02] MEDS: Polyethylene Glycol 3350 17 GM Packet PER TUBE SCH (08:33)
[2021-06-02] MEDS: NPH, Human Insulin Isophane 300 UNIT/3 ML VIAL SC SCH ×2 (08:33→21:13)
[2021-06-02] MEDS: Atorvastatin Calcium 40 MG TAB PER TUBE SCH (21:15)
[2021-06-03] MEDS: Acetaminophen 500 MG TAB PER TUBE PRN (04:11)
[2021-06-03 06:41] LABS: ALT (SGPT) 13 U/L (8-55); AST (SGOT) 13 U/L (5-34); Albumin 2.7 g/dL (3.4-4.8); Alkaline Phosphatase 78 U/L (40-110); Anion Gap 9 mmol/L (10-20); BUN (Urea Nitrogen) 47 mg/dL (8.4-25.7); Bilirubin, Total 0.4 mg/dL (0.2-1.2); Calc. Creatinine Clearance 153 mL/min (70-130); Calcium 8.7 mg/dL (7.8-10.44); Carbon Dioxide 33 mmol/L (23-31); Chloride 102 mmol/L (98-107); Globulin 2.3 g/dL (2.4-3.5); Glucose 130 mg/dL (80-115); Potassium 4.1 mmol/L (3.5-5.1); Sodium 140 mmol/L (136-145)
[2021-06-03 06:56] LABS: Hemoglobin 9.2 g/dL (14.0-18.0); Mean Corpuscular Hemoglobin 32.1 pg (27.0-31.0); Mean Platelet Volume 7.8 fL (7.4-10.4); Platelet Count 291 thou/uL (130-400); RBC Distribution Width 13.5 % (11.5-14.5); Red Blood Cell (RBC) Count 2.87 mill/uL (4.70-6.10); White Blood Cell (WBC) Count 16.7 thou/uL (4.8-10.8)
[2021-06-03 06:58] LABS: Band 2 % (5-11); Eosinophils 1 % (0-10); Lymphocytes 3 % (21-51); MDiff Complete? YES; Monocytes 2 % (0-10); Neutrophil 92 % (42-75); Toxic Granulation SLIGHT
[2021-06-03] MEDS: Polyethylene Glycol 3350 17 GM Packet PER TUBE SCH (08:31)
[2021-06-03] MEDS: Aspirin 325 MG TAB PER TUBE SCH (08:31)
[2021-06-03] MEDS: Enoxaparin Sodium 40 MG/0.4 ML SYRINGE SC SCH (08:31)
[2021-06-03] MEDS: Dexamethasone 4 mg/ml Vial SLOW IVP SCH (08:31)
[2021-06-03] MEDS: Allopurinol 300 MG TAB PER TUBE SCH (08:32)
[2021-06-03] MEDS: Senokot S 8.6-50 MG TAB PO SCH ×2 (08:32→21:31)
[2021-06-03] MEDS: Lansoprazole 3 MG/ML ORAL SUSPENSION PER TUBE SCH (08:32)
[2021-06-03] MEDS: Carvedilol 3.125 MG TAB PER TUBE SCH ×2 (08:32→17:25)
[2021-06-03] MEDS: NPH, Human Insulin Isophane 300 UNIT/3 ML VIAL SC SCH ×2 (08:33→21:32)
[2021-06-03] MEDS ORDERED: Sodium Chloride 0.9% 500 ML IVPB SCH (14:30)
[2021-06-03] MEDS: Atorvastatin Calcium 40 MG TAB PER TUBE SCH (21:30)
[2021-06-04 04:35] LABS: ALT (SGPT) 30 U/L (8-55); AST (SGOT) 22 U/L (5-34); Albumin 2.8 g/dL (3.4-4.8); Alkaline Phosphatase 80 U/L (40-110); Anion Gap 8 mmol/L (10-20); BUN (Urea Nitrogen) 56 mg/dL (8.4-25.7); Bilirubin, Total 0.4 mg/dL (0.2-1.2); Calc. Creatinine Clearance 145 mL/min (70-130); Calcium 8.9 mg/dL (7.8-10.44); Carbon Dioxide 34 mmol/L (23-31); Chloride 104 mmol/L (98-107); Globulin 2.5 g/dL (2.4-3.5); Glucose 182 mg/dL (80-115); Potassium 3.9 mmol/L (3.5-5.1); Protein, Total 5.3 g/dL (5.8-8.1); Sodium 142 mmol/L (136-145)
[2021-06-04 05:26] LABS: Hemoglobin 9.8 g/dL (14.0-18.0); Mean Corpuscular HGB CONC 31.8 g/dL (32.0-36.0); Mean Corpuscular Hemoglobin 31.2 pg (27.0-31.0); Mean Corpuscular Volume 98.2 fL (78.0-98.0); Mean Platelet Volume 8.5 fL (7.4-10.4); Platelet Count 304 thou/uL (130-400); RBC Distribution Width 13.3 % (11.5-14.5); Red Blood Cell (RBC) Count 3.13 mill/uL (4.70-6.10)
[2021-06-04] MEDS: HumaLOG 300 UNITS/3 ML VIAL SC PRN (05:26)
[2021-06-04 05:46] LABS: Band 6 % (5-11); Lymphocytes 10 % (21-51); MDiff Complete? YES; Monocytes 3 % (0-10); Neutrophil 81 % (42-75)
[2021-06-04] MEDS: Enoxaparin Sodium 40 MG/0.4 ML SYRINGE SC SCH (07:34)
[2021-06-04] MEDS: Senokot S 8.6-50 MG TAB PO SCH ×2 (07:34→20:38)
[2021-06-04] MEDS: Carvedilol 3.125 MG TAB PER TUBE SCH ×2 (07:34→16:21)
[2021-06-04] MEDS: Polyethylene Glycol 3350 17 GM Packet PER TUBE SCH (07:35)
[2021-06-04] MEDS: Allopurinol 300 MG TAB PER TUBE SCH (07:35)
[2021-06-04] MEDS: Dexamethasone 4 mg/ml Vial SLOW IVP SCH (07:35)
[2021-06-04] MEDS: NPH, Human Insulin Isophane 300 UNIT/3 ML VIAL SC SCH ×2 (07:37→22:06)
[2021-06-04] MEDS: Aspirin 325 MG TAB PER TUBE SCH (07:37)
[2021-06-04] MEDS: Lansoprazole 3 MG/ML ORAL SUSPENSION PER TUBE SCH (07:50)
[2021-06-04] MEDS: fentaNYL 50 mcg/hour Patch TD SCH (08:16)
[2021-06-04] MEDS: Lorazepam 2 MG/ML VIAL SLOW IVP PRN ×3 (10:30→16:21)
[2021-06-04] MEDS: Atorvastatin Calcium 40 MG TAB PER TUBE SCH (22:05)
[2021-06-05 04:05] LABS: Band 1 % (5-11); Eosinophils 2 % (0-10); Hemoglobin 9.4 g/dL (14.0-18.0); Lymphocytes 6 % (21-51); MDiff Complete? YES; Mean Corpuscular HGB CONC 31.7 g/dL (32.0-36.0); Mean Corpuscular Hemoglobin 31.2 pg (27.0-31.0); Mean Corpuscular Volume 98.3 fL (78.0-98.0); Mean Platelet Volume 7.9 fL (7.4-10.4); Monocytes 6 % (0-10); Neutrophil 85 % (42-75); Platelet Count 303 thou/uL (130-400); RBC Distribution Width 13.3 % (11.5-14.5); White Blood Cell (WBC) Count 9.4 thou/uL (4.8-10.8)
[2021-06-05 04:18] LABS: ALT (SGPT) 31 U/L (8-55); AST (SGOT) 16 U/L (5-34); Albumin 2.8 g/dL (3.4-4.8); Alkaline Phosphatase 82 U/L (40-110); Anion Gap 24 mmol/L (10-20); BUN (Urea Nitrogen) 46 mg/dL (8.4-25.7); Bilirubin, Total 0.4 mg/dL (0.2-1.2); Calc. Creatinine Clearance 176 mL/min (70-130); Calcium 9.2 mg/dL (7.8-10.44); Carbon Dioxide 19 mmol/L (23-31); Chloride 104 mmol/L (98-107); Globulin 2.5 g/dL (2.4-3.5); Glucose 221 mg/dL (80-115); Potassium 3.8 mmol/L (3.5-5.1); Protein, Total 5.3 g/dL (5.8-8.1); Sodium 143 mmol/L (136-145)
[2021-06-05] MEDS: HumaLOG 300 UNITS/3 ML VIAL SC PRN (05:14)
[2021-06-05] MEDS: Aspirin 325 MG TAB PER TUBE SCH (07:07)
[2021-06-05] MEDS: Lansoprazole 3 MG/ML ORAL SUSPENSION PER TUBE SCH (07:07)
[2021-06-05] MEDS: Enoxaparin Sodium 40 MG/0.4 ML SYRINGE SC SCH (07:08)
[2021-06-05] MEDS: Carvedilol 3.125 MG TAB PER TUBE SCH ×2 (07:08→16:37)
[2021-06-05] MEDS: Dexamethasone 4 mg/ml Vial SLOW IVP SCH (07:09)
[2021-06-05] MEDS: Allopurinol 300 MG TAB PER TUBE SCH (07:09)
[2021-06-05] MEDS: Polyethylene Glycol 3350 17 GM Packet PER TUBE SCH (07:33)
[2021-06-05] MEDS: Senokot S 8.6-50 MG TAB PO SCH ×2 (07:33→21:05)
[2021-06-05] MEDS: NPH, Human Insulin Isophane 300 UNIT/3 ML VIAL SC SCH ×2 (07:34→21:09)
[2021-06-05] MEDS: Lorazepam 2 MG/ML VIAL SLOW IVP PRN ×2 (07:35→23:43)
[2021-06-05] MEDS: Morphine 4 MG/ML VIAL SLOW IVP PRN ×2 (16:56→21:02)
[2021-06-05] MEDS: Atorvastatin Calcium 40 MG TAB PER TUBE SCH (21:04)
[2021-06-06 04:02] LABS: Band 5 % (5-11); Eosinophils 4 % (0-10); Hemoglobin 9.5 g/dL (14.0-18.0); Lymphocytes 12 % (21-51); MDiff Complete? YES; Mean Corpuscular HGB CONC 32.4 g/dL (32.0-36.0); Mean Corpuscular Hemoglobin 31.1 pg (27.0-31.0); Mean Corpuscular Volume 95.9 fL (78.0-98.0); Mean Platelet Volume 7.6 fL (7.4-10.4); Monocytes 4 % (0-10); Neutrophil 75 % (42-75); Platelet Count 313 thou/uL (130-400); Platelet Morphology Comment Appears Adequate; RBC Distribution Width 13.2 % (11.5-14.5); RBC Morphology Normal; Red Blood Cell (RBC) Count 3.06 mill/uL (4.70-6.10); White Blood Cell (WBC) Count 9.7 thou/uL (4.8-10.8)
[2021-06-06 04:49] LABS: Anion Gap 11 mmol/L (10-20); Carbon Dioxide 33 mmol/L (23-31); Chloride 105 mmol/L (98-107); Potassium 3.8 mmol/L (3.5-5.1); Sodium 145 mmol/L (136-145)
[2021-06-06] MEDS: Morphine 4 MG/ML VIAL SLOW IVP PRN (06:06)
[2021-06-06] MEDS: Enoxaparin Sodium 40 MG/0.4 ML SYRINGE SC SCH (07:25)
[2021-06-06] MEDS: Carvedilol 3.125 MG TAB PER TUBE SCH ×2 (07:25→16:45)
[2021-06-06] MEDS: Dexamethasone 4 mg/ml Vial SLOW IVP SCH (07:26)
[2021-06-06] MEDS: Allopurinol 300 MG TAB PER TUBE SCH (07:26)
[2021-06-06] MEDS: Lansoprazole 3 MG/ML ORAL SUSPENSION PER TUBE SCH (07:27)
[2021-06-06] MEDS: Aspirin 325 MG TAB PER TUBE SCH (07:29)
[2021-06-06] MEDS: Polyethylene Glycol 3350 17 GM Packet PER TUBE SCH (07:30)
[2021-06-06] MEDS: NPH, Human Insulin Isophane 300 UNIT/3 ML VIAL SC SCH ×2 (07:30→21:15)
[2021-06-06] MEDS: Senokot S 8.6-50 MG TAB PO SCH ×2 (07:31→21:14)
[2021-06-06] MEDS: Lorazepam 2 MG/ML VIAL SLOW IVP PRN ×2 (09:28→15:32)
[2021-06-06 12:14] VITALS: BMI 31.7
[2021-06-06 18:37] LABS: Albumin 2.9 g/dL (3.4-4.8)
[2021-06-06 18:39] LABS: Calcium 9.3 mg/dL (7.8-10.44)
[2021-06-06 18:40] LABS: Globulin 2.4 g/dL (2.4-3.5); Glucose 130 mg/dL (80-115); Protein, Total 5.3 g/dL (5.8-8.1)
[2021-06-06 18:42] LABS: Bilirubin, Total 0.7 mg/dL (0.2-1.2)
[2021-06-06 18:43] LABS: Alkaline Phosphatase 83 U/L (40-110); Calc. Creatinine Clearance 200 mL/min (70-130)
[2021-06-06 18:44] LABS: BUN (Urea Nitrogen) 28 mg/dL (8.4-25.7)
[2021-06-06 18:45] LABS: AST (SGOT) 14 U/L (5-34)
[2021-06-06 18:46] LABS: ALT (SGPT) 24 U/L (8-55)
[2021-06-06] MEDS: Atorvastatin Calcium 40 MG TAB PER TUBE SCH (21:13)
[2021-06-07 04:16] LABS: Hemoglobin 8.9 g/dL (14.0-18.0); Mean Corpuscular HGB CONC 32.1 g/dL (32.0-36.0); Mean Corpuscular Hemoglobin 30.9 pg (27.0-31.0); Mean Corpuscular Volume 96.2 fL (78.0-98.0); Platelet Count 280 thou/uL (130-400); RBC Distribution Width 13.2 % (11.5-14.5); Red Blood Cell (RBC) Count 2.88 mill/uL (4.70-6.10)
[2021-06-07 04:23] LABS: ALT (SGPT) 23 U/L (8-55); AST (SGOT) 13 U/L (5-34); Albumin 2.7 g/dL (3.4-4.8); Alkaline Phosphatase 82 U/L (40-110); Anion Gap 11 mmol/L (10-20); BUN (Urea Nitrogen) 22 mg/dL (8.4-25.7); Bilirubin, Total 0.5 mg/dL (0.2-1.2); Calc. Creatinine Clearance 207 mL/min (70-130); Calcium 9.1 mg/dL (7.8-10.44); Carbon Dioxide 33 mmol/L (23-31); Chloride 104 mmol/L (98-107); Globulin 2.4 g/dL (2.4-3.5); Glucose 156 mg/dL (80-115); Potassium 3.7 mmol/L (3.5-5.1); Protein, Total 5.1 g/dL (5.8-8.1); Sodium 144 mmol/L (136-145)
[2021-06-07 04:40] LABS: Band 7 % (5-11); Eosinophils 2 % (0-10); Lymphocytes 15 % (21-51); MDiff Complete? YES; Monocytes 2 % (0-10); Neutrophil 74 % (42-75)
[2021-06-07] MEDS: Morphine 4 MG/ML VIAL SLOW IVP PRN (04:55)
[2021-06-07] MEDS: Lorazepam 2 MG/ML VIAL SLOW IVP PRN (06:06)
[2021-06-07] MEDS: Allopurinol 300 MG TAB PER TUBE SCH (10:27)
[2021-06-07] MEDS: Enoxaparin Sodium 40 MG/0.4 ML SYRINGE SC SCH (10:28)
[2021-06-07] MEDS: Aspirin 325 MG TAB PER TUBE SCH (10:31)
[2021-06-07 10:32] VITALS: BP 129/68
[2021-06-07] MEDS: Polyethylene Glycol 3350 17 GM Packet PER TUBE SCH (10:32)
[2021-06-07] MEDS: fentaNYL 50 mcg/hour Patch TD SCH (10:32)
[2021-06-07] MEDS: Senokot S 8.6-50 MG TAB PO SCH (10:32)
[2021-06-07] MEDS: Carvedilol 3.125 MG TAB PER TUBE SCH (10:33)
[2021-06-07] MEDS: NPH, Human Insulin Isophane 300 UNIT/3 ML VIAL SC SCH (10:49)
[2021-06-07] MEDS: HumaLOG 300 UNITS/3 ML VIAL SC PRN (10:49)
[2021-06-07 11:26] VITALS: TEMP 98.8
== END 2021-06-07 11:50 | DRG 3 ==
LOC: ERS 09:52 → CCU 12:14
PROVIDERS: ADMIT Internal Medicine; ATTEND Internal Medicine
PROC: 5A1955Z Respiratory Ventilation, Greater than 96 Consecutive Hours (ICD-10-PCS; principal; 2021-04-23)
PROC: 0BH17EZ Insertion of Endotracheal Airway into Trachea, Via Natural or Artificial Opening (ICD-10-PCS; 2021-04-23)
PROC: 8E0ZXY6 Isolation (ICD-10-PCS; 2021-04-23)
PROC: XW0DXM6 Introduction of Baricitinib into Mouth and Pharynx, External Approach, New Technology Group 6 (ICD-10-PCS; 2021-04-24)
PROC: 0B113F4 Bypass Trachea to Cutaneous with Tracheostomy Device, Percutaneous Approach (ICD-10-PCS; 2021-05-18)
PROC: 0DH63UZ Insertion of Feeding Device into Stomach, Percutaneous Approach (ICD-10-PCS; 2021-05-18)
PROC: 3E0G76Z Introduction of Nutritional Substance into Upper GI, Via Natural or Artificial Opening (ICD-10-PCS; 2021-05-18)
PROC: 3E033XZ Introduction of Vasopressor into Peripheral Vein, Percutaneous Approach (ICD-10-PCS; 2021-05-18)
PROC: 0W337ZZ Control Bleeding in Oral Cavity and Throat, Via Natural or Artificial Opening (ICD-10-PCS; 2021-05-25)
PROC: 0DJ08ZZ Inspection of Upper Intestinal Tract, Via Natural or Artificial Opening Endoscopic (ICD-10-PCS; 2021-05-25)
PROC: 0BJ08ZZ Inspection of Tracheobronchial Tree, Via Natural or Artificial Opening Endoscopic (ICD-10-PCS; 2021-05-25)
PROC: 0B9J8ZZ Drainage of Left Lower Lung Lobe, Via Natural or Artificial Opening Endoscopic (ICD-10-PCS; 2021-05-26)
PROC: 0B9F8ZZ Drainage of Right Lower Lung Lobe, Via Natural or Artificial Opening Endoscopic (ICD-10-PCS; 2021-05-26)
PROC: 0CJS8ZZ Inspection of Larynx, Via Natural or Artificial Opening Endoscopic (ICD-10-PCS; 2021-05-27)
DX: U07.1 COVID-19 (principal); J12.82 Pneumonia due to coronavirus disease 2019; I21.A1 Myocardial infarction type 2; J96.01 Acute respiratory failure with hypoxia; J15.8 Pneumonia due to other specified bacteria; R57.8 Other shock; A41.9 Sepsis, unspecified organism; E87.2 Acidosis; N17.9 Acute kidney failure, unspecified; I42.9 Cardiomyopathy, unspecified; G93.40 Encephalopathy, unspecified; E87.1 Hypo-osmolality and hyponatremia; G72.81 Critical illness myopathy; K91.841 Postprocedural hemorrhage of a digestive system organ or structure following other procedure; I50.20 Unspecified systolic (congestive) heart failure; I11.0 Hypertensive heart disease with heart failure; E78.5 Hyperlipidemia, unspecified; E11.65 Type 2 diabetes mellitus with hyperglycemia; M21.372 Foot drop, left foot; M21.371 Foot drop, right foot; E87.5 Hyperkalemia; T38.0X5A Adverse effect of glucocorticoids and synthetic analogues, initial encounter; D72.829 Elevated white blood cell count, unspecified; I95.81 Postprocedural hypotension; R04.0 Epistaxis; Y83.8 Other surgical procedures as the cause of abnormal reaction of the patient, or of later complication, without mention of misadventure at the time of the procedure; E83.42 Hypomagnesemia; Z78.1 Physical restraint status; Z85.810 Personal history of malignant neoplasm of tongue
CPT/HCPCS: 31500; 31624; 36415; 36416; 36600; 51702; 70450; 71045; 71275; 80053; 80061; 80076; 80202; 81003; 81015; 82553; 82805; 83036; 83605; 83690; 83735; 83880; 84100; 84443; 84484; 85007; 85025; 85027; 85610; 85652; 85730; 86140; 87040; 87070; 87077; 87186; 87205; 93005; 93010; 93306; 94002; 94003; 96365; 96375; 96376; 99292; C9113; J0360; J0456; J0690; J0696; J1100; J1650; J1815; J1885; J1940; J1956; J2060; J2185; J2248; J2250; J2270; J2704; J2930; J3010; J3370; J3475; J3490; J7030; J7050; J7131; J7620; P9045; Q9967